=== PATIENT | female | born 1950 | race Caucasian/White ===

== ENCOUNTER → 2016-10-29 | Outpatient (CLI) | payer BC | END | disposition home or self-care (01) | LOC: LABPAT 12:34 | PROVIDERS: ATTEND Orthopaedic Surgery Sports Medicine | DX: Z01.810 Encounter for preprocedural cardiovascular examination (principal) | CPT/HCPCS: 93005 ==

== ENCOUNTER 2016-10-31 12:34 | Day surgery (SDC) | payer BC ==
[2016-10-29 16:36] VITALS: BMI 17.4
[~2016-10-31 12:34] MED LIST: DEXAMETHASONE SOD PHOSPHATE 10 MG/ML 1 ML VIAL IV ONE; HYDROmorphone 1 MG/ML 1 ML SYRINGE IVP PRN; MIDAZOLAM 2 MG/2 ML VIAL IV PRN; ONDANSETRON 4 MG/2 ML VIAL IVP ONE
[2016-10-31] MEDS: LACTATED RINGERS 1,000 ML IV ONE ×2 (12:43→14:24)
[2016-10-31] MEDS ORDERED: LIDOCAINE 1% 20 ML VIAL (10MG/ML) FOR IV START INTRADERMA ONE (12:43)
[2016-10-31] MEDS ORDERED: ALBUTEROL NEBULIZED 2.5 MG/3 ML INHALATION STA (13:25)
[2016-10-31 13:49] LABS: Basophils % (A) 0 %; CH 32.9; CHCM 34.6; Eosinophils # (A) 0.1 k/uL (0-0.7); Eosinophils % (A) 0 %; HCT 37.4 % (34.0-46.0); HDW 2.38; HGB 12.5 gm/dL (11.4-16.0); Luc # (Auto) 0.19; Luc % (Auto) 1; Lymphocytes # (A) 1.1 k/uL (1.0-4.8); Lymphocytes % (A) 8 %; MCH 31.9 pg (25.0-35.0); MCHC 33.4 g/dL (31.0-37.0); MCV 95.5 fL (80.0-100.0); Mean Platelet Volume 7.1; Monocytes # (A) 1.2 k/uL (0-1.0); Monocytes % (A) 9 %; Neutrophils # (A) 11.8 k/uL (1.3-7.7); Neutrophils % (A) 82 %; RBC 3.91 m/uL (3.80-5.40); RDW 12.4 % (11.5-15.5); WBC 14.5 k/uL (3.8-10.6)
[2016-10-31] MEDS ORDERED: SODIUM CHLORIDE 0.9% 1,000 ML BAG ONE (14:23)
[2016-10-31] MEDS ORDERED: LACTATED RINGERS 1,000 ML BAG IV ONE (14:23)
[2016-10-31] MEDS ORDERED: ceFAZolin 10 GM VIAL IVPB ONE (14:23)
[2016-10-31] MEDS ORDERED: LIDOCAINE 1% INJ 10MG/ML (20 ML MDV) ONE (14:23)
[2016-10-31] MEDS ORDERED: PHENYLEPHRINE-0.9% NACL SYG 1 MG/10 ML SYRINGE ONE (14:23)
[2016-10-31] MEDS ORDERED: SODIUM CHLORIDE 0.9% 100 ML BAG ONE (14:23)
[2016-10-31] MEDS ORDERED: ceFAZolin 1,000 MG VIAL ONE (14:23)
[2016-10-31] MEDS ORDERED: MIDAZOLAM 2 MG/2 ML VIAL ONE (14:23)
[2016-10-31] MEDS ORDERED: SUCCINYLCHOLINE CHLORIDE 100 MG/5 ML SYR IV ONE (14:23)
[2016-10-31] MEDS ORDERED: fentaNYL (PF) 50 MCG/ML 2 ML AMP ONE (14:23)
[2016-10-31] MEDS ORDERED: PROPOFOL 10 MG/ML 20 ML VIAL IV ONE (14:23)
[2016-10-31] MEDS ORDERED: GLYCOPYRROLATE 0.2 MG/ML 2 ML VIAL ONE (14:23)
[2016-10-31] MEDS ORDERED: HYDROmorphone (PF) 1 MG/ML ONE (14:23)
[2016-10-31] MEDS ORDERED: NEOSTIGMINE 1 MG/ML 10 ML VIAL ONE (14:23)
[2016-10-31] MEDS ORDERED: VECURONIUM 10 MG VIAL IV ONE (14:23)
[2016-10-31] MEDS ORDERED: ONDANSETRON 4 MG/2 ML VIAL ONE (14:23)
[2016-10-31] MEDS: ceFAZolin 2 GM in SODIUM CHLORIDE 0.9% 100 ML IVPB ONE ×2 (14:45→16:54)
[2016-10-31] MEDS: ceFAZolin 1,000 MG in SODIUM CHLORIDE 0.9% 1,000 ML IRRIGATION ONE ×2 (15:14→19:52)
[2016-10-31] MEDS ORDERED: TEMAZEPAM 15 MG CAP PO PRN (16:43)
[2016-10-31] MEDS ORDERED: SENNOSIDES-DOCUSATE SODIUM 1 EACH TAB PO PRN (16:43)
[2016-10-31] MEDS ORDERED: METOCLOPRAMIDE 5 MG/ML 2 ML VIAL IVP PRN (16:43)
[2016-10-31] MEDS ORDERED: ONDANSETRON 4 MG/2 ML VIAL IVP PRN (16:43)
[2016-10-31] MEDS ORDERED: diphenhydrAMINE 25 MG CAP PO PRN (16:43)
[2016-10-31] MEDS ORDERED: HYDROmorphone 1 MG/ML 1 ML SYRINGE IVP PRN ×3 (16:43)
[2016-10-31] MEDS ORDERED: HYDROcodone/APAP 5-325MG 1 EACH TAB PO PRN ×2 (16:43)
[2016-10-31] MEDS ORDERED: hydrOXYzine PAMOATE 25 MG CAP PO PRN (16:43)
--- NOTE | 2016-10-31 17:23 | XR ---
EXAMINATION TYPE: XR shoulder limited RT, FL guidance operating room DATE OF EXAM: 10/31/2016 4:46 PM FLUOROSCOPY Fluoroscopy time of 1 minute 19 seconds was used during ORIF proximal right humerus. 3 image/s docum ent/s the procedure. Images show side plate and multiple screw fixation of the proximal humeral fracture which appears to be at the level of the surgical neck. There appears to be distraction at the glenohumeral joint.
[2016-10-31] MEDS: LACTATED RINGERS 1,000 ML IV SCH (18:24)
[2016-10-31] MEDS: DOXYCYCLINE 50 MG CAP PO SCH (21:03)
[2016-11-01] MEDS: ceFAZolin 2 GM in SODIUM CHLORIDE 0.9% 100 ML IVPB SCH ×2 (00:16→08:25)
[2016-11-01] MEDS: LACTATED RINGERS 1,000 ML IV SCH (05:14)
[2016-11-01 06:40] LABS: Basophils % (A) 0 %; CH 32.6; CHCM 33.2; Eosinophils # (A) 0.1 k/uL (0-0.7); Eosinophils % (A) 1 %; HCT 32.8 % (34.0-46.0); HDW 2.41; HGB 10.6 gm/dL (11.4-16.0); Luc # (Auto) 0.17; Luc % (Auto) 2; Lymphocytes # (A) 1.8 k/uL (1.0-4.8); Lymphocytes % (A) 18 %; MCH 31.8 pg (25.0-35.0); MCHC 32.2 g/dL (31.0-37.0); MCV 98.6 fL (80.0-100.0); Mean Platelet Volume 7.3; Monocytes # (A) 1.1 k/uL (0-1.0); Monocytes % (A) 11 %; Neutrophils % (A) 69 %; RBC 3.32 m/uL (3.80-5.40); RDW 12.4 % (11.5-15.5); WBC 10.1 k/uL (3.8-10.6); WBC (Perox) 10.68
[2016-11-01] MEDS: DOXYCYCLINE 50 MG CAP PO SCH (08:24)
[2016-11-01 08:37] VITALS: TEMP 98.2
[2016-11-01] MEDS ORDERED: ACETAMINOPHEN TAB 325 MG TAB PO PRN (08:50)
--- NOTE | 2016-11-01 09:47 | OP ---
DATE OF SERVICE: 10/31/2016 SURGEON: ANA LUISA ESPINO MD ETCHER MACHINE: LORY Das PREOPERATIVE DIAGNOSIS: Right displaced 2-part proximal humerus fracture. POSTOPERATIVE DIAGNOSIS: Right displaced 2-part proximal humerus fracture. OPERATION: Open reduction internal fixation right proximal humerus fracture. ANESTHESIA: General endotracheal. ESTIMATED BLOOD LOSS: 100 mL. SPECIMENS REMOVED: COMPLICATIONS: None apparent. DRAINS: None. DISPOSITION: Postanesthesia care unit. OPERATIVE FINDINGS: INDICATIONS: Re is a very pleasant 66-year-old female who fell approximately 5 to 6 days ago and injured her right shoulder. She eventually presented to an urgent care center where x-rays of the shoulder were done and then she ultimately presented to [facility] Emergency Room this past Friday. Workup including x-rays revealed a displaced proximal humerus fracture. She was placed into a sling and given followup in my office. I saw her earlier this week. There was significant varus deformity of the proximal humerus and displacement of the fracture. Recommendation was given Re's activity level and the fact that she is still working recommendation was for open reduction internal fixation of her right proximal humerus fracture. The risks were discussed with her in detail. These risks include, but are not limited to risk of infection, nerve damage, bleeding, pain, and a small risk of deep vein thrombosis, which could lead to fatal pulmonary embolism. Further risks include possibility for nonunion of the fracture and for avascular necrosis of the humeral head. Postoperative stiffness is also of a significant concern. All of Re's questions were answered to her satisfaction and appropriate informed consent was obtained. DESCRIPTION OF THE PROCEDURE: The patient was identified in the preoperative holding area. Surgical site was marked by both the patient and myself. She was given 2 grams of Ancef IV for prophylactic purposes. She was then transferred to the operative suite, where she was placed supine on the operating room table. General anesthetic was then administered and dosed to the anesthesia department without apparent complication. She was then placed into the beach chair position, well padded in preparation for surgery. Great care was taken to ensure that her neck was in neutral alignment, well-padded and maintained that way throughout the operative procedure. Her legs were appropriately padded as well. Her right upper extremity was then prepped and draped in usual sterile fashion. Standard surgical pause was then undertaken to ensure that we were operating on the correct site and that appropriate preoperative antibiotics had been given. All staff in the room were in agreement and we proceeded. The outlines of the acromion, distal clavicle, acromioclavicular joint and coracoid were marked with a surgical pen. A planned 10 to 12 cm incision extending from the level of the clavicle distally over the deltopectoral interval approximately 1 cm lateral to the coracoid was marked with a surgical pen. The incision was then made with a 10 blade scalpel. Dissection was carried down sharply to the deltoid fascia. All hemostasis was achieved with electrocautery. Minimal skin flaps were then elevated. The deltopectoral interval was identified at the level of clavicle. I then freed the cephalic vein laterally and then left the cephalic vein in its bed medially. The cephalic vein was protected throughout the rest of the case. I then utilized my finger to dissect the subdeltoid space. A significant hemorrhagic bursa, a significant fracture hematoma was also encountered at this point in time. The hemorrhagic bursa was sharply debrided. I then placed three #1 Vicryl traction sutures in the subscapularis supraspinatus and posteriorly in the infraspinatus. These traction sutures gave me excellent control of the humeral head. Utilizing traction sutures, I reduced the humeral head into appropriate amount of valgus back to the humeral shaft. The humeral shaft was impacted into the humeral head. Fluoroscopy was then brought in to evaluate the reduction. The humeral head reduction was acceptable. The humeral head valgus had been restored. The shaft was reduced to the humeral head. I then proceeded with placement of the plate. I utilized a Synthes right-sided proximal humeral locking plate. This was then placed onto the lateral aspect of the proximal humerus. It was then provisionally pinned into place. Fluoroscopy was utilized to ensure that the height was appropriate and that it was not placed too superior. I then placed a 3.5 mm bicortical nonlocking screw through the oblong hole in the humeral shaft. This secured the plate very securely to the humeral shaft. I then proceeded to place multiple cannulated locking screws into the humeral head. These were placed through the locking holes of the precontoured plate. Each screw was placed with fluoroscopic guidance to ensure that it was appropriate length. Multiple screws were placed, cannulated lock sutures were placed in the humeral head. This gave excellent fixation of the plate to the humeral head. I then placed a final 3.5 mm bicortical nonlocking screw through the distal hole in the plate. Again this had a fairly good bite in bone. Final fluoroscopic images were then taken. The fracture had been reduced nicely. All the screws were of appropriate length and did not penetrate into the glenohumeral joint. All screws were in bone on both AP and lateral views. I then placed three #1 Vicryl sutures through the supraspinatus and infraspinatus. These sutures were then tied to the plate. This was done for a parachute-type technique to reinforce the fixation. At this point in time, no further work seemed necessary. The shoulder was thoroughly irrigated with sterile saline solution with antibiotic added. I then placed by finger into the ( ) joint space and felt for the axillary nerve. The axillary nerve was intact. I then proceeded with closure. The deltopectoral interval was closed with interrupted 0 Vicryl suture. Subcutaneous tissue was closed with interrupted 2-0 Vicryl interrupted suture and the skin was closed with a running 3-0 Quill suture. Dermabond was then applied to the incision. Sterile dressing was applied and the patient's right upper extremity was placed into a standard sling. At this point in time, no further work was deemed necessary. She was transferred to the recovery room in stable condition.
--- NOTE | 2016-11-01 10:20 | P.DS ---
Providers Expected date of discharge: 11/01/16 Attending physician: Jose Daniel Sifuentes Consults: 10/31/16 16:43 Consult Physician Routine Consulting Provider: Nerissa Merchant Consult Reason/Comments: post op medical management Do you want consulting provider notified?: Yes Primary care physician: Stated None - Discharge Diagnosis(es) (1) Fracture of proximal humerus Current Visit: No Status: Acute Hospital Course: This is a pleasant 66-year-old female who fell approximately a week ago injuring her right shoulder. She was seen in our office with displaced proximal humerus fracture. She was placed in a sling. After discussion and consideration the patient elected to proceed with open reduction internal fixation of the right proximal humerus. She was admitted to [facility] on 10/31/2016 and underwent the procedure with Dr. Jose Daniel Sifuentes. The procedure was performed without competitions or sequelae. The patient did well postoperatively. She seen and evaluated at bedside this morning. She states that her pain is well-controlled. She has no complaints at this time. She denies numbness or tingling. She is alert and orientated 3. Her dressing is clean dry and intact. Incision appears fine with no erythema or active drainage. Neurovascular status is intact. Radial pulse 2+ out of 4+. The patient is orthopedically stable for discharge to home today please refer to discharge instructions for further recommendations. Pertinent Studies: Laboratory Tests 11/01/16 06:27 WBC 10.1 RBC 3.32 L Hgb 10.6 L Hct 32.8 L Monocytes # 1.1 H Patient Condition at Discharge: Good Plan - Discharge Summary New Discharge Prescriptions: Doxycycline Hyclate 100 mg PO BID #10 tab HYDROcodone/APAP 7.5-325MG [[place] 7.5-325] 1 - 2 tab PO Q6HR PRN #60 tab PRN Reason: Pain Discharge Medication List Aspirin 81 mg PO HS 10/29/16 [History] Enalapril Maleate [Enalapril Maleate] 10 mg PO BID 10/29/16 [History] Fluticasone Propionate [Flovent Hfa 110mcg] 2 puff INHALATION DAILY 10/29/16 [ History] Naproxen Sodium [Aleve] 220 mg PO BID PRN 10/29/16 [History] Vitamin D3 (Unknown Dose) 1 tab PO DAILY 10/29/16 [History] Vitamin E (Unknown Dose) 1 tab PO DAILY 10/29/16 [History] Doxycycline Hyclate 100 mg PO BID #10 tab 10/31/16 [Rx] HYDROcodone/APAP 7.5-325MG [[place] 7.5-325] 1 - 2 tab PO Q6HR PRN #60 tab [Rx] Follow up Appointment(s)/Referral(s): Jose Daniel Sifuentes MD [STAFF PHYSICIAN] - 11/13/16 1:50 pm (You have an appointment with Dr Sifuentes on Sunday, November 13, 2016 at 1:50 pm) Activity/Diet/Wound Care/Special Instructions: Maintain sling Take meds as directed Keep wound clean and dry Non weight bearing right upper extremity Follow up with Dr. Sifuentes in office, [phone]. October at 1: 50 pm. May take Tylenol in place of [place] Call Dr Sifuentes if you develop a fever, increasing pain, increasing swelling, tingling, loss of sensation, or if you have any other questions or concerns. Discharge Disposition: HOME SELF-CARE
[2016-11-01] MEDS ORDERED: IPRATROPIUM-ALBUTEROL 3 ML NEB INHALATION SCH (12:00)
[2016-11-01 12:49] VITALS: BP 172/88
[2016-11-01 13:33] VITALS: PULSE 90; RESP 18
--- NOTE | 2016-11-01 15:32 | P.CONS ---
History of Present Illness - Reason for Consult Consult date: 11/01/16 Low pulse ox - History of Present Illness This is a 66-year-old female. She is a patient of Dr. Uriostegui with a past medical history of COPD with rescue inhaler only, hypertension, silent myocardial infarction in the past found on EKG, tobacco use and dependence. Patient had a fall 1 week ago injuring her right shoulder. She followed up with Dr. Sifuentes and was found to have a displaced proximal humerus fracture that was placed in a sling. Patient was brought into [facility] for open reduction internal fixation of the right proximal humerus which was done on October 31. Patient was prepared for discharge home per pulse ox was found to be 81% and she was having some wheezing. Patient was ordered for nebulizer treatment, incentive spirometry and after these treatments, patient's pulse ox was up to 97% with ambulation. Patient was then discharged home in stable condition. Patient states that her pain is well controlled. She denies shortness of breath. She denies having any fever or chills night sweats. No weight loss. Review of Systems All systems: negative Constitutional: Denies chills, Denies fever Eyes: denies blurred vision, denies pain Ears, nose, mouth and throat: Denies headache, Denies sore throat Cardiovascular: Denies chest pain, Denies shortness of breath Respiratory: Denies cough Gastrointestinal: Denies abdominal pain, Denies diarrhea, Denies nausea, Denies vomiting Genitourinary: Denies dysuria, Denies hematuria Musculoskeletal: Denies myalgias Integumentary: Denies pruritus, Denies rash Neurological: Denies numbness, Denies weakness Psychiatric: Denies anxiety, Denies depression Endocrine: Denies fatigue, Denies weight change Past Medical History Past Medical History: COPD, Hypertension, Myocardial Infarction (RI) Additional Past Medical History / Comment(s): TOLD SILENT RI IN PAST. FX RT PROXIMAL HUMERUS CURRENTLY, IN SLING. Last Myocardial Infarction Date:: UNKNOWN History of Any Multi-Drug Resistant Organisms: None Reported Past Surgical History: Cholecystectomy, Hysterectomy Additional Past Surgical History / Comment(s): EXC OVARIAN CYST. Past Anesthesia/Blood Transfusion Reactions: No Reported Reaction Past Psychological History: No Psychological Hx Reported Smoking Status: Current every day smoker Past Alcohol Use History: Occasional Additional Past Alcohol Use History / Comment(s): SMOKES 1PPD, 40 YEARS. DRINKS ALCOHOL 7-10 PER WEEK. Past Drug Use History: None Reported - Past Family History Mother Family Medical History: Cancer Father Family Medical History: Cancer Medications and Allergies Home Medications Medication Instructions Recorded Confirmed Type Aspirin 81 mg PO HS 10/29/16 10/31/16 History Enalapril Maleate [Enalapril 10 mg PO BID 10/29/16 10/31/16 History Maleate] Fluticasone Propionate [Flovent 2 puff INHALATION DAILY 10/29/16 10/31/16 History Hfa 110mcg] Naproxen Sodium [Aleve] 220 mg PO BID PRN 10/29/16 10/31/16 History Vitamin D3 (Unknown Dose) 1 tab PO DAILY 10/29/16 10/31/16 History Vitamin E (Unknown Dose) 1 tab PO DAILY 10/29/16 10/31/16 History Allergies Allergy/AdvReac Type Severity Reaction Status Date / Time Iodinated Contrast Media - Allergy Intermediate Rash/Hives Verified 10/31/16 18: 52 Oral and Physical Exam Vitals: Vital Signs Temp Pulse Pulse Pulse Pulse Pulse Resp 11/01/16 12:58 80 11/01/16 12:48 76 11/01/16 12:06 11/01/16 11:30 11/01/16 11:25 90 11/01/16 08:00 20 11/01/16 07:55 98.2 F 88 20 11/01/16 03:42 70 16 11/01/16 00:20 97.6 F 86 20 10/31/16 22:00 97.9 F 81 16 10/31/16 20:00 100 104 H 18 10/31/16 19:30 81 16 10/31/16 18:55 80 16 10/31/16 18:25 97.5 F L 95 20 10/31/16 17:54 101 H 16 10/31/16 17:39 101 H 16 10/31/16 17:24 101 H 16 10/31/16 17:09 104 H 16 10/31/16 16:54 98.4 F 100 18 10/31/16 13:47 66 10/31/16 13:37 62 BP Pulse Ox 11/01/16 12:58 11/01/16 12:48 11/01/16 12:06 172/88 93 L 11/01/16 11:30 87 L 11/01/16 11:25 81 L 11/01/16 08:00 11/01/16 07:55 166/90 91 L 11/01/16 03:42 94 L 11/01/16 00:20 164/89 94 L 10/31/16 22:00 163/89 94 L 10/31/16 20:00 142/83 98 10/31/16 19:30 154/76 96 10/31/16 18:55 155/84 95 10/31/16 18:25 149/75 92 L 10/31/16 17:54 159/76 99 10/31/16 17:39 146/75 95 10/31/16 17:24 168/81 91 L 10/31/16 17:09 164/81 100 10/31/16 16:54 169/81 99 10/31/16 13:47 10/31/16 13:37 Intake and Output 10/31/16 11/01/16 11/01/16 22:59 06:59 14:59 Intake Total 1182 1600 Output Total 175 600 600 Balance 1007 1000 -600 Intake: IV 102 Oral 1080 1600 Output: Urine 75 600 600 Estimated Blood Loss 100 Other: Voiding Method Toilet Toilet # Voids 1 1 1 Weight 47.627 kg 47.627 kg Patient Weight 11/02/16 06:59 Weight 47.627 kg Gen: This is a very thin 66-year-old female. She is sitting up on the edge of the bed and appears to be in no respiratory distress. HEENT: Head is atraumatic, normocephalic. Pupils equal, round. Sclerae is anicteric. NECK: Supple. No JVD. No lymphadenopathy. No thyromegaly. LUNGS: Clear to auscultation. Rate wheezes with decreased air exchange. No intercostal retractions. HEART: Regular rate and rhythm. No murmur. ABDOMEN: Soft. Bowel sounds are present. No masses. No tenderness. EXTREMITIES: No pedal edema. No calf tenderness. Sling in place to the right arm. NEUROLOGICAL: Patient is awake, alert and oriented x3. Cranial nerves 2 through 12 are grossly intact. Results CBC & Chem 7: 11/01/16 06:27 Labs: Abnormal Lab Results - Last 24 Hours (Table) 10/31/16 11/01/16 Range/Units 13:05 06:27 WBC 14.5 H (3.8-10.6) k/uL RBC 3.32 L (3.80-5.40) m/uL Hgb 10.6 L (11.4-16.0) gm/dL Hct 32.8 L (34.0-46.0) % Neutrophils # 11.8 H (1.3-7.7) k/uL Monocytes # 1.2 H 1.1 H (0-1.0) k/uL Assessment and Plan Plan: 1. Right humerus fracture status post ORIF. Continue sling. Continue pain management. 2. Low pulse ox. Patient was ordered for one nebulizer treatment, incentive spirometry. IS was at 1000 mL's. Pulse ox was increased to 97% with ambulation and patient was cleared for discharge from medicine. 3. COPD, stable. Continue rescue inhaler and Flovent at home. 4. Hypertension. Continue enalapril. Impression and plan of care have been directed as dictated by the signing physician. Yoon Toscano nurse practitioner acting as scribe for signing physician. Time with Patient: Greater than 30
== END 2016-11-01 13:43 | disposition home or self-care (01) ==
LOC: OR 12:34 → 6PED 16:42 → OR 11-01 13:43
PROVIDERS: ATTEND Orthopaedic Surgery Sports Medicine
DX: S42.201A Unspecified fracture of upper end of right humerus, initial encounter for closed fracture (principal); W19.XXXA Unspecified fall, initial encounter; R09.02 Hypoxemia; J44.9 Chronic obstructive pulmonary disease, unspecified; I10 Essential (primary) hypertension; I51.9 Heart disease, unspecified; Z79.899 Other long term (current) drug therapy; I25.2 Old myocardial infarction; F17.200 Nicotine dependence, unspecified, uncomplicated; Z91.041 Radiographic dye allergy status
CPT/HCPCS: 23615; 94640 ×2; 85025 ×2; 73020; C1713; J2250; J1100; J2710; J0690 ×3; J2405; J2001; J3010; J1170 ×2; J2370; J0330; J2704

== ENCOUNTER 2016-11-18 10:48 | Inpatient (IN) | payer BC ==
[2016-11-18] MEDS ORDERED: IPRATROPIUM-ALBUTEROL 3 ML NEB INHALATION STA (11:22)
[2016-11-18] MEDS ORDERED: methylPREDNISolone SOD SUCCI 125 MG/2 ML VIAL IV STA (11:22)
[2016-11-18 11:51] LABS: Basophils # (A) 0.1 k/uL (0-0.2); Basophils % (A) 1 %; CH 32.1; CHCM 34.1; Eosinophils # (A) 0.1 k/uL (0-0.7); Eosinophils % (A) 1 %; HCT 38.7 % (34.0-46.0); HDW 2.61; HGB 12.7 gm/dL (11.4-16.0); Luc # (Auto) 0.09; Luc % (Auto) 1; Lymphocytes # (A) 1.2 k/uL (1.0-4.8); Lymphocytes % (A) 12 %; MCHC 32.9 g/dL (31.0-37.0); MCV 94.2 fL (80.0-100.0); Mean Platelet Volume 7.5; Monocytes # (A) 0.9 k/uL (0-1.0); Monocytes % (A) 9 %; Neutrophils # (A) 7.6 k/uL (1.3-7.7); Neutrophils % (A) 77 %; RDW 13.4 % (11.5-15.5); WBC 9.9 k/uL (3.8-10.6); WBC (Perox) 10.87
[2016-11-18 12:00] LABS: Anion Gap 10 mmol/L; Blood Urea Nitrogen 9 mg/dL (7-17); Carbon Dioxide 26 mmol/L (22-30); Chloride 95 mmol/L (98-107); Glucose 107 mg/dL (74-99); Magnesium 1.6 mg/dL (1.6-2.3); Non-African American GFR(MDRD) >60 (>60 ml/min/1.73 sqM); Potassium 4.4 mmol/L (3.5-5.1); Sodium 131 mmol/L (137-145)
[2016-11-18 12:08] LABS: INR 1.1 (<1.1); Partial Thromboplastin Time 24.6 sec (22.0-30.0); Prothrombin Time 10.8 sec (9.0-12.0)
--- NOTE | 2016-11-18 12:35 | ED ---
General Adult HPI - General Chief complaint: Shortness of Breath Stated complaint: URBAN Time Seen by Provider: 11/18/16 11:07 Source: patient, EMS Mode of arrival: ambulatory Limitations: no limitations - History of Present Illness Initial comments: Patient is a 66-year-old female with history of COPD, hypertension, and persistent tobacco abuse presenting with shortness of breath. Patient states since last she's been short of breath. Patient states she fell on her left side been having left lower rib pain. She has been using heat as well as Tylenol with relief. Patient denies productive sputum but that she is unable to get a good cough. Patient states she fell 3 weeks ago and had a humerus fracture which was repaired. Patient cannot say why she keeps falling but just gets weak. Patient denies history of DVT/PE. Patient denies history of oxygen but was found to be hypoxic at 88% and placed on 2 L nasal cannula. Patient denies fever, chills, chest pain, nausea, vomiting, diarrhea. - Related Data Home Medications Medication Instructions Recorded Confirmed Aspirin 81 mg PO HS 10/29/16 11/18/16 Enalapril Maleate [Enalapril 10 mg PO BID 10/29/16 11/18/16 Maleate] Fluticasone Propionate [Flovent 2 puff INHALATION RT-DAILY 10/29/16 11/18/16 Hfa 110mcg] Acetaminophen Tab [Tylenol Tab] 650 mg PO Q4H PRN 11/18/16 11/18/16 Cholecalciferol [Vitamin D3] 1,000 unit PO DAILY 11/18/16 11/18/16 Cyanocobalamin [Vitamin B-12] 500 mcg PO DAILY 11/18/16 11/18/16 Allergies Allergy/AdvReac Type Severity Reaction Status Date / Time Iodinated Contrast Media - Allergy Intermediate Rash/Hives Verified 11/18/16 11: 06 Oral and Review of Systems ROS Statement: Those systems with pertinent positive or pertinent negative responses have been documented in the HPI. Constitutional: No fever and no chills. HENT: No congestion, no rhinorrhea and no sore throat. Eyes: No discharge and no redness. Respiratory: No cough and +shortness of breath. Cardiovascular: No chest pain and no palpitations. Gastrointestinal: No nausea, no vomiting, no abdominal pain and no diarrhea. Genitourinary: No dysuria and no hematuria. Musculoskeletal: No back pain and no arthralgias. Skin: No pallor and no rash. Neurological: No dizziness and No headaches. ROS Other: All systems not noted in ROS Statement are negative. Past Medical History Past Medical History: COPD, Hypertension, Myocardial Infarction ([place]) Additional Past Medical History / Comment(s): TOLD SILENT [place] IN PAST. FX RT PROXIMAL HUMERUS CURRENTLY, IN [place]. Last Myocardial Infarction Date:: UNKNOWN History of Any Multi-Drug Resistant Organisms: None Reported Past Surgical History: Cholecystectomy, Hysterectomy Additional Past Surgical History / Comment(s): EXC OVARIAN CYST. Past Anesthesia/Blood Transfusion Reactions: No Reported Reaction Past Psychological History: No Psychological Hx Reported Smoking Status: Current every day smoker Past Alcohol Use History: Occasional Additional Past Alcohol Use History / Comment(s): SMOKES 1PPD, 40 YEARS. DRINKS ALCOHOL 7-10 PER WEEK. Past Drug Use History: None Reported - Past Family History Mother Family Medical History: Cancer Father Family Medical History: Cancer General Exam - General Exam Comments Initial Comments: Constitutional: Patient appears well-developed and well-nourished. Moderate respiratory distress Head: Normocephalic and atraumatic. Eyes: Conjunctivae and EOM are normal. Right eye exhibits no discharge. Left eye exhibits no discharge. No scleral icterus. Neck: Normal range of motion. Neck supple. Cardiovascular: Tachycardic. No murmur heard. Pulmonary/Chest: Tachypnea with diffuse bilateral coarse wheezing Abdominal: Soft. No distension. There is no tenderness. There is no rebound and no guarding. Musculoskeletal: Bruising to right humerus. Left lateral rib cage tenderness without bruising. Neurological: Patient alert and oriented to person, place, and time. Skin: Skin is warm and dry. Not diaphoretic. Nursing notes and vitals reviewed. Limitations: no limitations Course Vital Signs 11/18/16 11/18/16 11/18/16 10:51 11:13 12:03 Temperature 98 F Pulse Rate 120 H 111 H Respiratory 18 18 18 Rate Blood Pressure 207/98 201/99 O2 Sat by Pulse 92 L 95 Oximetry 11/18/16 11/18/16 11/18/16 12:07 12:15 13:16 Temperature Pulse Rate 106 H 110 H 91 Respiratory 18 Rate Blood Pressure 204/96 O2 Sat by Pulse 100 Oximetry 11/18/16 11/18/16 11/18/16 14:24 14:47 15:21 Temperature Pulse Rate 104 H 99 98 Respiratory 18 17 17 Rate Blood Pressure 211/100 205/103 196/100 O2 Sat by Pulse 90 L 92 L 94 L Oximetry 11/18/16 11/18/16 11/18/16 15:22 15:38 16:01 Temperature Pulse Rate 94 97 93 Respiratory 17 Rate Blood Pressure 197/92 O2 Sat by Pulse 97 Oximetry EKG Findings - EKG Comments: EKG Findings:: EKG done at 12:04 shows a ventricular rate of 108 bpm. Sinus tachycardia. SD interval 158 ms. QRS duration 82 ms. QTC 436 seconds. T- wave inversions V5 through V6. No ST elevation. Medical Decision Making - Medical Decision Making Patient's a 66-year-old female presenting with shortness of breath. Patient states she fell 4 days ago and has been having left lower rib pain. Patient does have COPD for which she is not on home oxygen. Patient has been using Tylenol and heating pad for the pain. Chest x-ray confirms a 10% left apical pneumothorax with left rib fractures of ribs 8 and 9. EKG unremarkable. CBC, BMP, troponin, UA unremarkable. Patient was resting comfortably in bed. Course of stay stable but will need close observation for possible worsening PTx. Discussed physical exam and diagnostic tests with patient. Questions answered and patient is agreeable to staying in the hospital. 1:26pm Discussed H&P and pertinent diagnostic tests Dr. Contreras, Trauma Surgery, who defers to cardiothoracic surgery as patient is NOT a level II trauma activation and injury was 4 days ago. 1:42pm Discussed H&P and pertinent diagnostic tests with Dr. Syed, CTS, who agrees with holding off on chest tube. Recommends daily chest x-rays. Patient can be managed for COPD exacerbation without any NSAIDs or steroids. 2:00pm Discussed H&P and pertinent diagnostic tests with admitting physician, Dr. Morgan , who agrees with plan and accepts admission of patient. Recommends consult and Dr. Handley and holding off on CTS consult. - Plan of care will be to treat patient for COPD exacerbation with breathing treatments and doxycycline. Patient will be treated for left rib fractures and pneumothorax with serial chest x-rays, pain control: Leading patch, Robaxin, opiates, and incentive spirometer. - Lab Data Result diagrams: 11/18/16 11:07 11/18/16 11:07 Lab Results 11/18/16 11/18/16 11/18/16 Range/Units 11:07 11:07 11:07 WBC 9.9 (3.8-10.6) k/uL RBC 4.10 (3.80-5.40) m/uL Hgb 12.7 (11.4-16.0) gm/dL Hct 38.7 (34.0-46.0) % MCV 94.2 (80.0-100.0) fL MCH 31.0 (25.0-35.0) pg MCHC 32.9 (31.0-37.0) g/dL RDW 13.4 (11.5-15.5) % Plt Count 428 (150-450) k/uL Neutrophils % 77 % Lymphocytes % 12 % Monocytes % 9 % Eosinophils % 1 % Basophils % 1 % Neutrophils # 7.6 (1.3-7.7) k/uL Lymphocytes # 1.2 (1.0-4.8) k/uL Monocytes # 0.9 (0-1.0) k/uL Eosinophils # 0.1 (0-0.7) k/uL Basophils # 0.1 (0-0.2) k/uL PT 10.8 (9.0-12.0) sec INR 1.1 (<1.1) APTT 24.6 (22.0-30.0) sec Sodium 131 L (137-145) mmol/L Potassium 4.4 (3.5-5.1) mmol/L Chloride 95 L (98-107) mmol/L Carbon Dioxide 26 (22-30) mmol/L Anion Gap 10 mmol/L BUN 9 (7-17) mg/dL Creatinine 0.48 L (0.52-1.04) mg/dL Est GFR (MDRD) Af Amer >60 (>60 ml/min/1.73 sqM) Est GFR (MDRD) Non-Af >60 (>60 ml/min/1.73 sqM) Glucose 107 H (74-99) mg/dL Plasma Lactic Acid Donn (0.7-2.0) mmol/L Calcium 9.0 (8.4-10.2) mg/dL Magnesium 1.6 (1.6-2.3) mg/dL Troponin I (0.000-0.034) ng/mL Urine Color Urine Appearance (Clear) Urine pH (5.0-8.0) Ur Specific [place] (1.001-1.035) Urine Protein (Negative) Urine Glucose (UA) (Negative) Urine Ketones (Negative) Urine Blood (Negative) Urine Nitrate (Negative) Urine Bilirubin (Negative) Urine Urobilinogen (<2.0) mg/dL Ur Leukocyte Esterase (Negative) 11/18/16 11/18/16 11/18/16 Range/Units 11:07 11:55 12:15 WBC (3.8-10.6) k/uL RBC (3.80-5.40) m/uL Hgb (11.4-16.0) gm/dL Hct (34.0-46.0) % MCV (80.0-100.0) fL MCH (25.0-35.0) pg MCHC (31.0-37.0) g/dL RDW (11.5-15.5) % Plt Count (150-450) k/uL Neutrophils % % Lymphocytes % % Monocytes % % Eosinophils % % Basophils % % Neutrophils # (1.3-7.7) k/uL Lymphocytes # (1.0-4.8) k/uL Monocytes # (0-1.0) k/uL Eosinophils # (0-0.7) k/uL Basophils # (0-0.2) k/uL PT (9.0-12.0) sec INR (<1.1) APTT (22.0-30.0) sec Sodium (137-145) mmol/L Potassium (3.5-5.1) mmol/L Chloride (98-107) mmol/L Carbon Dioxide (22-30) mmol/L Anion Gap mmol/L BUN (7-17) mg/dL Creatinine (0.52-1.04) mg/dL Est GFR (MDRD) Af Amer (>60 ml/min/1.73 sqM) Est GFR (MDRD) Non-Af (>60 ml/min/1.73 sqM) Glucose (74-99) mg/dL Plasma Lactic Acid Donn 1.4 (0.7-2.0) mmol/L Calcium (8.4-10.2) mg/dL Magnesium (1.6-2.3) mg/dL Troponin I <0.012 (0.000-0.034) ng/mL Urine Color Light Yellow Urine Appearance Clear (Clear) Urine pH 5.5 (5.0-8.0) Ur Specific [place] 1.004 (1.001-1.035) Urine Protein Negative (Negative) Urine Glucose (UA) Negative (Negative) Urine Ketones Negative (Negative) Urine Blood Negative (Negative) Urine Nitrate Negative (Negative) Urine Bilirubin Negative (Negative) Urine Urobilinogen <2.0 (<2.0) mg/dL Ur Leukocyte Esterase Negative (Negative) Disposition Clinical Impression: Hypertension, Traumatic pneumothorax, Rib fractures, Hypoxia Disposition: ADMITTED IP TO THIS [facility] Condition: Good Decision to Admit Reason: Admit from EC
[2016-11-18] MEDS: LABETALOL SYRINGE 5 MG/ML IVP STA ×2 (12:40→15:24)
--- NOTE | 2016-11-18 12:48 | XR ---
EXAMINATION TYPE: XR ribs LT w pa chest xray DATE OF EXAM: 11/18/2016 12:39 PM COMPARISON: NONE HISTORY: Fall hitting ribs TECHNIQUE: Frontal chest and 2 views left RIBS FINDINGS: There are posterior lateral left rib fractures of the eighth and ninth ribs. There is a sma ll left apical pneumothorax of less than 10%. Atelectasis is at the left base and left costophrenic a ngle. Some atelectasis may be present at the right lung base as well. IMPRESSION: 1. Left apical pneumothorax estimated at approximately 10%. 2. Two left-sided rib fractures the region of the 8th and 9th posterior lateral left ribs. 3. Report called to Dr. Francisco by Dr. Hall by telephone 124 hours 11/18/2016
[2016-11-18 13:01] LABS: Appearance,Urine Clear (Clear); Bilirubin,Urine Negative (Negative); Glucose,Urine (UA) Negative (Negative); Ketones,Urine Negative (Negative); Leukocyte Esterase,Urine Negative (Negative); Nitrite,Urine Negative (Negative); PH, Urine 5.5 (5.0-8.0); Protein,Urine Negative (Negative); Specific Gravity,Urine 1.004 (1.001-1.035); UA Billing (MACRO vs. MICRO) CHEM; Urobilinogen,Urine <2.0 mg/dL (<2.0)
[2016-11-18] MEDS ORDERED: ACETAMINOPHEN TAB 325 MG TAB PO PRN (13:57)
[2016-11-18] MEDS ORDERED: HYDROcodone/APAP 5-325MG 1 EACH TAB PO PRN (13:57)
[2016-11-18] MEDS ORDERED: NALOXONE 0.4 MG/ML 1 ML VIAL IV PRN (13:57)
[2016-11-18] MEDS ORDERED: MORPHINE SULFATE 4 MG/ML SYRINGE IV PRN (13:57)
[2016-11-18] MEDS ORDERED: MORPHINE SULFATE 4 MG/ML SYRINGE IVP STA (14:28)
[2016-11-18] MEDS ORDERED: LIDOCAINE 5% PATCH TOPICAL SCH (14:30)
[2016-11-18] MEDS: IPRATROPIUM-ALBUTEROL 3 ML NEB INHALATION SCH ×2 (15:22→20:59)
[2016-11-18] MEDS: SODIUM CHLORIDE 0.9% 1,000 ML IV SCH (17:22)
[2016-11-18] MEDS: METHOCARBAMOL 750 MG TAB PO SCH (17:23)
[2016-11-18] MEDS: LISINOPRIL 20 MG TAB PO SCH (22:04)
[2016-11-18] MEDS: DOXYCYCLINE 100 MG in SODIUM CHLORIDE 0.9% 100 ML IVPB SCH (22:05)
--- NOTE | 2016-11-18 23:50 | P.HPIM ---
History of Present Illness H&P Date: 11/18/16 Chief Complaint: Acute dyspnea and shortness of breath, left sided pneumothorax , bibasilar i 66-year-old female [address] alexander patient with past medical history of hypertension COPD and previous history of [place] who has been falling multiple times in the last few few weeks had an episode 3 weeks ago with the fracture humerus require surgery and repair with Dr. Sifuentes. Patient had fell on past week on the left side in the left have severe pain and discomfort ended up having significant dyspnea and shortness of breath for the last few days become much worse today ended up coming to the emergency department at [facility] where was seen and evaluated x-ray of the rib shows fracture in the rib 8 and 9 with left apical pneumothorax measuring about 10%. Cardiothoracic surgeon were consulted and decided based on the current pneumothorax no need for any surgical repair hour chest tube at that time to continue conservative management and continue consultation as an inpatient. Patient also has an early infiltrate in the base was started on doxycycline and continue updraft treatment and O2 and admitted to the hospital with the above problem. Review of Systems Constitutional: Reports anorexia, Reports chronic pain, Reports fatigue, Reports lethargy, Reports malaise, Reports weakness, Denies as per HPI, Denies chills, Denies chronic headaches, Denies daytime sleepiness, Denies fever, Denies night sweats, Denies poor appetite, Denies sweats, Denies weight gain, Denies weight loss Eyes: bilateral as per HPI Ears: bilateral: decreased hearing Ears, nose, mouth and throat: Reports ant. neck pain, Reports nasal congestion, Reports neck fullness/pressure, Reports neck lump, Reports sinus pain, Reports sinus pressure, Denies as per HPI, Denies bleeding gums, Denies dental pain, Denies dysphagia, Denies epistaxis, Denies headache, Denies hoarseness, Denies mouth pain, Denies nasal discharge, Denies nose pain, Denies odynophagia, Denies post-nasal drip, Denies swelling in mouth, Denies swelling in throat, Denies sore throat, Denies vertigo, Denies voice changes Cardiovascular: Reports chest pain, Reports decreased exercise tolerance, Reports dyspnea on exertion, Reports edema, Reports high blood pressure, Reports irregular heart beat, Reports leg edema, Reports lightheadedness, Reports orthopnea, Reports palpitations, Reports paroxysmal nocturnal dyspnea, Reports rapid heart beat, Reports shortness of breath, Denies as per HPI, Denies claudication, Denies phlebitis, Denies syncope Respiratory: Reports congestion, Reports cough with sputum, Reports pain on inspiration, Reports wheezing, Denies as per HPI, Denies cough, Denies dyspnea, Denies excessive sputum, Denies hemoptysis, Denies home oxygen, Denies pain, Denies pleurisy, Denies respiratory infections, Denies sleep apnea, Denies snoring Gastrointestinal: Reports abdominal pain, Reports dyspepsia, Reports indigestion , Reports nausea, Denies as per HPI, Denies belching, Denies bloating, Denies BRBPR, Denies change in bowel habits, Denies coffee ground emesis, Denies constipation, Denies diarrhea, Denies early satiety, Denies excessive gas, Denies heartburn, Denies hematemesis, Denies hematochezia, Denies jaundice, Denies lactose intolerance, Denies loss of appetite, Denies melena, Denies vomiting Genitourinary: Denies as per HPI, Denies abnormal vaginal bleeding, Denies decreased libido, Denies difficulty conceiving, Denies difficulty voiding, Denies dysmenorrhea, Denies dyspareunia, Denies dysuria, Denies flank pain, Denies genital sores, Denies hematuria, Denies hot flashes, Denies incomplete emptying, Denies kidney stones, Denies menorrhagia, Denies mixed incontinence, Denies nocturia, Denies pelvic pain, Denies post void dribbling, Denies , Denies prolapse symptoms, Denies stress incontinence, Denies urge incontinence , Denies urgency, Denies urinary frequency, Denies vaginal discharge, Denies vaginal dryness, Denies vaginal itching, Denies vaginal odor Musculoskeletal: Reports arm numbness/tingling, Reports frequent falls, Reports gait dysfunction, Reports leg numbness/tingling, Reports limitation of motion, Reports low back pain, Reports muscle cramps, Reports muscle weakness, Reports myalgias, Reports neck pain, Reports neck stiffness, Denies as per HPI, Denies atrophy, Denies fractures, Denies hot joints, Denies loss of height, Denies morning stiffness, Denies prior amputations, Denies redness of joints, Denies shooting arm pain, Denies shooting leg pain Musculoskeletal: bilateral: ankle pain Integumentary: Reports dryness, Reports pruritus, Reports rash, Denies as per HPI, Denies acne, Denies boils, Denies brittle nails, Denies change in hair/ nails, Denies color changes, Denies darkening of skin, Denies depigmentation, Denies foot/leg ulcers, Denies growths, Denies hirsutism, Denies lesions, Denies onychomycosis, Denies sores, Denies striae, Denies unusual bruising, Denies wounds Neurological: Reports ataxia, Reports lack of coordination, Reports motor disturbance, Reports numbness, Reports paresthesias, Reports spasticity, Denies as per HPI, Denies aphasia, Denies balance difficulties, Denies burning pain, Denies change in mentation, Denies change in smell/taste, Denies change in speech, Denies confusion, Denies convulsions, Denies double vision, Denies gait dysfunction, Denies head injury, Denies headaches, Denies hearing difficulties, Denies loss of vision, Denies memory loss, Denies migraines, Denies paralysis, Denies seizures, Denies sensory deficit, Denies syncope, Denies tic, Denies tingling, Denies transient paralysis, Denies tremors, Denies vertigo, Denies weakness, Denies visual changes Psychiatric: Reports anhedonia, Reports anxiety, Reports anxiety attacks, Reports depression, Reports mood swings, Denies as per HPI, Denies change in appetite, Denies change in libido, Denies change in sleep habits, Denies confusion, Denies difficulty concentrating, Denies disorientation, Denies hallucinations, Denies hopelessness, Denies hypersomnia, Denies insomnia, Denies irritability, Denies memory loss, Denies paranoia, Denies sadness/ tearfulness, Denies sleep disturbances, Denies suicidal ideation Endocrine: Reports cold intolerance, Reports excessive sweating, Reports nocturia, Reports polyphagia, Reports polyuria, Denies as per HPI, Denies deepening of the voice, Denies excessive thirst, Denies fatigue, Denies flushing , Denies heat intolerance, Denies high blood sugars, Denies increase in ring/ shoe/hat size, Denies low blood sugars, Denies palpitations, Denies polydipsia, Denies proptosis, Denies recent glucocorticoid use, Denies thyroid mass, Denies weight change Hematologic/Lymphatic: Reports easy bleeding, Reports easy bruising, Denies as per HPI, Denies lymphadenopathy, Denies lymphedema, Denies thrombophilia Allergic/Immunologic: Denies as per HPI, Denies allergic rhinitis, Denies anaphylaxis, Denies angioedema, Denies gluten intolerance, Denies persistent infections, Denies seasonal allergies, Denies urticaria, Denies wheezing Past Medical History Past Medical History: COPD, Hypertension, Myocardial Infarction ([place]) Additional Past Medical History / Comment(s): TOLD SILENT [place] IN PAST. FX RT PROXIMAL HUMERUS CURRENTLY, IN [place]. Last Myocardial Infarction Date:: UNKNOWN History of Any Multi-Drug Resistant Organisms: None Reported Past Surgical History: Cholecystectomy, Hysterectomy Additional Past Surgical History / Comment(s): EXC OVARIAN CYST. Past Anesthesia/Blood Transfusion Reactions: No Reported Reaction Past Psychological History: No Psychological Hx Reported Smoking Status: Current every day smoker Past Alcohol Use History: Occasional Additional Past Alcohol Use History / Comment(s): SMOKES 1PPD, 40 YEARS. DRINKS ALCOHOL 7-10 PER WEEK. Past Drug Use History: None Reported - Past Family History Mother Family Medical History: Cancer Additional Family Medical History / Comment(s): colon ca-passed from Father Family Medical History: Cancer Additional Family Medical History / Comment(s): skin ca Medications and Allergies Home Medications Medication Instructions Recorded Confirmed Type Aspirin 81 mg PO HS 10/29/16 11/18/16 History Enalapril Maleate [Enalapril 10 mg PO BID 10/29/16 11/18/16 History Maleate] Fluticasone Propionate [Flovent 2 puff INHALATION RT-DAILY 10/29/16 11/18/16 History Hfa 110mcg] Acetaminophen Tab [Tylenol Tab] 650 mg PO Q4H PRN 11/18/16 11/18/16 History Cholecalciferol [Vitamin D3] 1,000 unit PO DAILY 11/18/16 11/18/16 History Cyanocobalamin [Vitamin B-12] 500 mcg PO DAILY 11/18/16 11/18/16 History Allergies Allergy/AdvReac Type Severity Reaction Status Date / Time Iodinated Contrast Media - Allergy Intermediate Rash/Hives Verified 11/18/16 11: 06 Oral and Physical Exam Vitals: Vital Signs Temp Pulse Pulse Resp BP BP Pulse Ox 11/18/16 21:13 97 11/18/16 21:01 105 H 11/18/16 16:59 96.7 F L 107 H 20 166/93 95 11/18/16 16:22 97.2 F L 96 17 176/84 97 11/18/16 16:01 93 17 197/92 97 11/18/16 15:38 97 11/18/16 15:22 94 11/18/16 15:21 98 17 196/100 94 L 11/18/16 14:47 99 17 205/103 92 L 11/18/16 14:24 104 H 18 211/100 90 L Intake and Output 11/18/16 11/18/16 11/18/16 06:59 14:59 22:59 Intake Total 240 Balance 240 Intake: Oral 240 Other: Voiding Method Toilet Weight 47.627 kg Patient Weight 11/19/16 06:59 Weight 47.627 kg - Constitutional General appearance: no average body habitus, cooperative, disheveled, mild distress, no morbidly obese, no no acute distress, no obese, no severe distress , thin - EENT Eyes: no abnormal pupil, no anicteric sclerae, no disc margins sharp, no edentulous, no EOMI, no PERRLA, no fundus normal, no photophobia, no dentition normal, no poor dentition, no ptosis, no scleral icterus, normal appearance ENT: no hard of hearing, no hearing grossly normal, no NA/AT, normal oropharynx , no other, pharyngeal erythema, no thrush, no tonsillar exudates, no tonsillar swelling Ears: bilateral: normal, bulging - Neck Neck: normal ROM Carotids: bilateral: upstroke normal Thyroid: bilateral: normal size - Respiratory Respiratory: left: diminished, dullness, rales, rhonchi, bilateral: wheezing, prolonged expiration - Cardiovascular Rhythm: regular Heart sounds: normal: S1, S2 Abnormal Heart Sounds: S3 Gallop - Gastrointestinal General gastrointestinal: no absent bowel sounds, decreased bowel sounds, distended, no hepatomegaly, no hyperactive bowel sounds, no normal bowel sounds , no organomegaly, no rigid, no scaphoid, soft, no splenomegaly, no tenderness, no umbilical hernia, no ventral hernia - Integumentary Integumentary: no calor, no cellulitis, no cyanotic, no decreased turgor, no flushed, no jaundiced, normal, no normal turgor, pale, no rash, no ulcer - Neurologic Neurologic: CNII-XII intact - Musculoskeletal Musculoskeletal: gait normal, generalized weakness, strength equal bilaterally - Psychiatric Psychiatric: A&O x's 3, appropriate affect Results CBC & Chem 7: 11/18/16 11:07 11/18/16 11:07 Thrombosis Risk Factor Assmnt - DVT/VTE Prophylaxis DVT/VTE Prophylaxis: Pharmacologic Prophylaxis ordered, Mechanical Prophylaxis ordered - Choose All That Apply Each Factor Represents 1 point: Abnormal pulmonary function (COPD), History of prior major surgery (<1month) Each Risk Factor Represents 2 Points: Age 61-74 years Thrombosis Risk Factor Assessment Total Risk Factor Score: 4 Thrombosis Risk Factor Assessment Level: Moderate Risk Assessment and Plan Plan: 1 severe dyspnea and shortness of breath: Combination of pneumothorax, multiple rib fracture and traumatic fracture along with COPD and pneumonia treat underlying disease. 2 severe traumatic pneumothorax of the left side major 10%, will consult pulmonary and cardiothoracic surgeon no need for chest tube repeat chest x-ray daily and watch the progression or the improvement of the pneumothorax. 3 multiple rib fracture: Continue incentive spirometry continue O2 updraft treatment and pain management. 4 COPD: Continue patient DuoNeb and continue steroid inhaler with Flovent. 5 hypertension: Patient has been on enalapril 10 mg twice a day. 6 DVT prophylaxis: Patient will be on heparin 5000 units subcutaneous twice a day. 7 GI prophylaxis: Patient will be on Pepcid daily. 8 smoking cessation: Nicotine patch will be used for now. 9 CODE STATUS: Full code. Expectation from this admission: Patient be the hospital for more than 2 nights.
[2016-11-19] MEDS: ACETAMINOPHEN TAB 325 MG TAB PO PRN ×3 (00:33→18:42)
[2016-11-19] MEDS: methylPREDNISolone SOD SUCCI 40 MG/ML 1 ML VIAL IV SCH ×2 (00:59→09:19)
[2016-11-19] MEDS: METHOCARBAMOL 750 MG TAB PO SCH ×4 (00:59→22:19)
[2016-11-19] MEDS ORDERED: INSULIN LISPRO (humaLOG) 300 UNIT/3 ML VIAL SQ SCH (07:30)
[2016-11-19] MEDS: SODIUM CHLORIDE 0.9% 1,000 ML IV SCH ×2 (07:38→15:43)
[2016-11-19] MEDS ORDERED: BUDESONIDE 0.5 MG/2 ML NEBU INHALATION SCH (08:00)
[2016-11-19] MEDS: IPRATROPIUM-ALBUTEROL 3 ML NEB INHALATION SCH ×4 (09:33→19:44)
--- NOTE | 2016-11-19 09:57 | P.CNPUL ---
History of Present Illness Consult date: 11/19/16 Reason for consult: dyspnea, pneumothorax, abnormal CXR/CT Chief complaint: Shortness of breath History of present illness: This is a 66-year-old female with history of underlying COPD. She also has a history of hypertension and ongoing tobacco use. She apparently presented to the emergency department on 11/18/2016 which shortness of breath. She apparently fell last week and injured the left side of her chest. She was trying to tough it out at home but the pain became unbearable and shortness of breath got worse and soleus she decided to come to the emergency room to be evaluated. She apparently was found to have a left-sided pneumothorax about 10% apically as well as fractures of the left ribs that #8 #9 position. Apparently a chest tube was then be inserted but it was felt that because pneumothorax relatively small Bhatia just watch her provide her with oxygen therapy and pain relief and that would probably be N now. Anyway the patient is doing about the same today as she was yesterday. She was admitted to Dr. Morgan's service. Review of Systems A 12 point review of system is positive for primarily shortness of breath with deep inspiration and body position changes as well as pain on the left chest area. She has no cough. No phlegm production. No fever no chills. No abdominal discomfort. Past Medical History Past Medical History: COPD, Hypertension, Myocardial Infarction ([place]) Additional Past Medical History / Comment(s): TOLD SILENT TN IN PAST. FX RT PROXIMAL HUMERUS CURRENTLY, IN SLING. Last Myocardial Infarction Date:: UNKNOWN History of Any Multi-Drug Resistant Organisms: None Reported Past Surgical History: Cholecystectomy, Hysterectomy Additional Past Surgical History / Comment(s): EXC OVARIAN CYST. Past Anesthesia/Blood Transfusion Reactions: No Reported Reaction Past Psychological History: No Psychological Hx Reported Smoking Status: Current every day smoker Past Alcohol Use History: Occasional Additional Past Alcohol Use History / Comment(s): SMOKES 1PPD, 40 YEARS. DRINKS ALCOHOL 7-10 PER WEEK. Past Drug Use History: None Reported - Past Family History Mother Family Medical History: Cancer Additional Family Medical History / Comment(s): colon ca-passed from Father Family Medical History: Cancer Additional Family Medical History / Comment(s): skin ca Medications and Allergies Home Medications Medication Instructions Recorded Confirmed Type Aspirin 81 mg PO HS 10/29/16 11/18/16 History Enalapril Maleate [Enalapril 10 mg PO BID 10/29/16 11/18/16 History Maleate] Fluticasone Propionate [Flovent 2 puff INHALATION RT-DAILY 10/29/16 11/18/16 History Hfa 110mcg] Acetaminophen Tab [Tylenol Tab] 650 mg PO Q4H PRN 11/18/16 11/18/16 History Cholecalciferol [Vitamin D3] 1,000 unit PO DAILY 11/18/16 11/18/16 History Cyanocobalamin [Vitamin B-12] 500 mcg PO DAILY 11/18/16 11/18/16 History Allergies Allergy/AdvReac Type Severity Reaction Status Date / Time Iodinated Contrast Media - Allergy Intermediate Rash/Hives Verified 11/18/16 11: 06 Oral and Physical Exam Osteopathic Statement: *. No significant issues noted on an osteopathic structural exam other than those noted in the History and Physical/Consult. Vitals: Vital Signs Temp Pulse Pulse Pulse Resp BP BP 11/19/16 09:34 100 11/19/16 08:00 98.4 F 108 H 18 184/95 11/19/16 04:00 97.2 F L 94 18 156/93 11/19/16 00:00 97.2 F L 119 H 18 166/88 11/18/16 21:13 97 11/18/16 21:01 11/18/16 20:00 97.1 F L 109 H 18 188/97 11/18/16 16:59 96.7 F L 107 H 20 166/93 11/18/16 16:22 97.2 F L 96 17 176/84 11/18/16 16:01 93 17 197/92 11/18/16 15:38 97 11/18/16 15:22 94 11/18/16 15:21 98 17 196/100 11/18/16 14:47 99 17 205/103 11/18/16 14:24 104 H 18 211/100 Pulse Ox 11/19/16 09:34 11/19/16 08:00 95 11/19/16 04:00 97 11/19/16 00:00 97 11/18/16 21:13 11/18/16 21:01 105 H 11/18/16 20:00 97 11/18/16 16:59 95 11/18/16 16:22 97 11/18/16 16:01 97 11/18/16 15:38 11/18/16 15:22 11/18/16 15:21 94 L 11/18/16 14:47 92 L 11/18/16 14:24 90 L Intake and Output 11/18/16 11/19/16 11/19/16 22:59 06:59 14:59 Intake Total 240 1500 Output Total 800 1200 Balance 240 700 -1200 Intake: Oral 240 1500 Output: Urine 800 1200 Other: Voiding Method Toilet Toilet # Voids 2 Weight 47.627 kg 48.6 kg No acute distress, oriented 3. Nasal O2 in place. HEENT examination is grossly unremarkable. Mucous membranes are moist. No oral lesions. Next Supple. Full range of motion. No adenopathy. Cardiovascular examination reveals regular rhythm rate. S1-S2 normal. No S3- S4. No distinct murmur noted. Lungs reveal few scattered rhonchi. No wheezes or crackles. There is some tenderness on palpation in the left chest area. There is no evidence of any subcutaneous emphysema. Abdomen soft bowel sounds are heard. Extremities are intact. Results - Laboratory Findings CBC and BMP: 11/18/16 11:07 11/18/16 11:07 PT/INR, D-dimer PT 10.8 sec (9.0-12.0) 11/18/16 11:07 INR 1.1 (<1.1) 11/18/16 11:07 - Diagnostic Findings Chest x-ray: image reviewed (Left apical pneumothorax is noted.) Assessment and Plan (1) Rib fractures Status: Acute (2) Traumatic pneumothorax Status: Acute Plan: Plan The patient should receive nasal O2. Incentive spirometry should be provided for the patient. The most important thing for this patient would be pain control. Additional recommendations suggestions are forthcoming. Her underlying COPD medications should be resumed. Follow-up chest x-rays can be done. Time with Patient: Greater than 30
[2016-11-19] MEDS: DOXYCYCLINE 100 MG in SODIUM CHLORIDE 0.9% 100 ML IVPB SCH (10:08)
[2016-11-19] MEDS: FAMOTIDINE 20 MG TAB PO SCH (10:21)
[2016-11-19] MEDS: HEPARIN SODIUM,PORCINE 5,000 UNIT/ML 1 ML VIAL SQ SCH ×2 (10:21→22:19)
[2016-11-19] MEDS: LISINOPRIL 20 MG TAB PO SCH ×2 (10:21→22:16)
[2016-11-19] MEDS: NICOTINE 14MG/24HR PATCH TRANSDERM SCH (10:22)
[2016-11-19 10:53] LABS: Hemoglobin A1C 5.1 % (4.2-6.1)
[2016-11-19 10:57] VITALS: BMI 17.8
[2016-11-19] MEDS: CHOLECALCIFEROL 1,000 UNIT TAB PO SCH (11:24)
[2016-11-19] MEDS: CYANOCOBALAMIN 500 MCG TAB PO SCH (11:24)
[2016-11-19] MEDS ORDERED: cloNIDine HCL 0.1 MG TAB PO PRN (11:33)
--- NOTE | 2016-11-19 15:21 | P.PN ---
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 Sifuentes. Patient had fell on past week on the left side in the left have severe pain and discomfort ended up having significant dyspnea and shortness of breath for the last few days become much worse today ended up coming to the emergency department at [facility] where was seen and evaluated x-ray of the rib shows fracture in the rib 8 and 9 with left apical pneumothorax measuring about 10%. Cardiothoracic surgeon were consulted and decided based on the current pneumothorax no need for any surgical repair hour chest tube at that time to continue conservative management and continue consultation as an inpatient. Patient also has an early infiltrate in the base was started on doxycycline and continue updraft treatment and O2 and admitted to the hospital with the above problem. 11/19: Patient denies any new complaints. Breathing status is currently stable. We'll plan to monitor overnight and possible discharge by tomorrow. Objective - Vital Signs Vital signs: Vital Signs Temp 98.4 F 11/19/16 08:00 Pulse 112 H 11/19/16 09:51 Resp 18 11/19/16 08:00 BP 184/95 11/19/16 08:00 Pulse Ox 95 11/19/16 08:00 Intake & Output 11/18/16 11/19/16 11/19/16 18:59 06:59 18:59 Intake Total 240 1500 Output Total 800 1200 Balance 240 700 -1200 Weight 47.627 kg 48.6 kg Intake: Oral 240 1500 Output: Urine 800 1200 Other: Voiding Method Toilet Toilet # Voids 2 - Exam General appearance: no average body habitus, cooperative, disheveled, mild distress, no morbidly obese, no no acute distress, no obese, no severe distress , thin - EENT Eyes: no abnormal pupil, no anicteric sclerae, no disc margins sharp, no edentulous, no EOMI, no PERRLA, no fundus normal, no photophobia, no dentition normal, no poor dentition, no ptosis, no scleral icterus, normal appearance ENT: no hard of hearing, no hearing grossly normal, no NA/AT, normal oropharynx , no other, pharyngeal erythema, no thrush, no tonsillar exudates, no tonsillar swelling Ears: bilateral: normal, bulging - Neck Neck: normal ROM Carotids: bilateral: upstroke normal Thyroid: bilateral: normal size - Respiratory Respiratory: left: diminished, dullness, rales, rhonchi, bilateral: wheezing, prolonged expiration - Cardiovascular Rhythm: regular Heart sounds: normal: S1, S2 Abnormal Heart Sounds: S3 Gallop - Gastrointestinal General gastrointestinal: no absent bowel sounds, decreased bowel sounds, distended, no hepatomegaly, no hyperactive bowel sounds, no normal bowel sounds , no organomegaly, no rigid, no scaphoid, soft, no splenomegaly, no tenderness, no umbilical hernia, no ventral hernia - Integumentary Integumentary: no calor, no cellulitis, no cyanotic, no decreased turgor, no flushed, no jaundiced, normal, no normal turgor, pale, no rash, no ulcer - Neurologic Neurologic: CNII-XII intact - Musculoskeletal Musculoskeletal: gait normal, generalized weakness, strength equal bilaterally - Psychiatric Psychiatric: A&O x's 3, appropriate affect - Labs CBC & Chem 7: 11/18/16 11:07 11/18/16 11:07 Assessment and Plan Plan: 1 severe dyspnea and shortness of breath: Combination of pneumothorax, multiple rib fracture and traumatic fracture along with COPD and pneumonia treat underlying disease. 2 severe traumatic pneumothorax of the left side major 10%, will consult pulmonary and cardiothoracic surgeon no need for chest tube repeat chest x-ray daily and watch the progression or the improvement of the pneumothorax. 3 multiple rib fracture: Continue incentive spirometry continue O2 updraft treatment and pain management. 4 COPD: Continue patient DuoNeb and continue steroid inhaler with Flovent. 5 hypertension: Patient has been on enalapril 10 mg twice a day. 6 DVT prophylaxis: Patient will be on heparin 5000 units subcutaneous twice a day. 7 GI prophylaxis: Patient will be on Pepcid daily. 8 smoking cessation: Nicotine patch will be used for now. 9 CODE STATUS: Full code. Discharge plan: to be determined Impression and plan of care have been directed as dictated by the signing physician. Yoon Toscano nurse practitioner acting as scribe for signing physician. Time with Patient: Greater than 30
[2016-11-19] MEDS: SYMBICORT 160-4.5 MCG INHALER INHALATION SCH (19:44)
[2016-11-19] MEDS: ASPIRIN 81 MG CHEW PO SCH (22:17)
[2016-11-19] MEDS: LIDOCAINE 5% PATCH TOPICAL SCH ×2 (22:19→23:32)
[2016-11-20 06:42] LABS: Anion Gap 10 mmol/L; Blood Urea Nitrogen 11 mg/dL (7-17); Calcium 8.8 mg/dL (8.4-10.2); Carbon Dioxide 23 mmol/L (22-30); Chloride 99 mmol/L (98-107); Glucose 89 mg/dL (74-99); Non-African American GFR(MDRD) >60 (>60 ml/min/1.73 sqM); Potassium 4.3 mmol/L (3.5-5.1); Sodium 132 mmol/L (137-145)
--- NOTE | 2016-11-20 08:07 | XR ---
EXAMINATION TYPE: XR chest 2V DATE OF EXAM: 11/20/2016 7:59 AM COMPARISON: 11/18/2016 HISTORY: Shortness of breath TECHNIQUE: Frontal and lateral views of the chest are obtained. FINDINGS: Left-sided pneumothorax appears to be smaller in size and is estimated at less than 5%. There is hydr opneumothorax component seen at the left lung posteriorly. Left basilar pleural-parenchymal opacity i s slightly progressive and may reflect atelectasis, contusion and/or a small amount of hemothorax. Le ft-sided rib fractures again noted. The right lung is clear. Cardiomediastinal silhouette is stable. IMPRESSION: 1. Left apical pneumothorax is smaller in size. 2. Hydropneumothorax component is noted left upper lobe posteriorly. 3.Left basilar pleural-parenchymal opacity is slightly progressive and may reflect atelectasis, contu kimo and/or a small amount of hemothorax. Recommendation: CT chest
[2016-11-20] MEDS: IPRATROPIUM-ALBUTEROL 3 ML NEB INHALATION SCH ×4 (08:18→19:50)
[2016-11-20] MEDS: SYMBICORT 160-4.5 MCG INHALER INHALATION SCH ×2 (08:19→19:52)
[2016-11-20] MEDS: LISINOPRIL 20 MG TAB PO SCH ×2 (09:05→21:20)
[2016-11-20] MEDS: FAMOTIDINE 20 MG TAB PO SCH (09:08)
[2016-11-20] MEDS: METHOCARBAMOL 750 MG TAB PO SCH ×4 (09:08→21:27)
[2016-11-20] MEDS: NICOTINE 14MG/24HR PATCH TRANSDERM SCH (09:08)
[2016-11-20] MEDS: HEPARIN SODIUM,PORCINE 5,000 UNIT/ML 1 ML VIAL SQ SCH ×3 (09:08→21:27)
[2016-11-20] MEDS: ACETAMINOPHEN TAB 325 MG TAB PO PRN ×3 (09:27→21:22)
--- NOTE | 2016-11-20 10:45 | P.PN ---
Subjective Progress note dated 11/20/2016 This is a 66-year-old female who was seen yesterday in consultation. She fell last week and injured the left chest. She was found to have multiple rib fractures on the left small left apical pneumothorax and possibly pulmonary contusion and small hydropneumothorax. Today's chest x-rays improved. I she mostly needs pain control incentive spirometry and breathing treatments. Anyway please see my consultation from yesterday. The patient's a bit better today. Objective - Vital Signs Vital signs: Vital Signs Temp 97.6 F 11/20/16 07:30 Pulse 97 11/20/16 08:30 Resp 18 11/20/16 08:30 BP 174/82 11/20/16 07:35 Pulse Ox 93 L 11/20/16 08:21 Intake & Output 11/19/16 11/20/16 11/20/16 18:59 06:59 18:59 Intake Total 866 180 Output Total 1200 600 Balance -334 -420 Weight 48.6 kg 49.9 kg Intake: IV 450 Sodium Chloride 0.9% 1, 450 000 ml @ 75 mls/hr IV . [id number] [facility] Rx#:[id number] Oral 416 180 Output: Urine 1200 600 Other: Voiding Method Toilet Toilet Toilet # Voids 1 # Bowel Movements 1 - Exam No acute distress, oriented 3. HEENT examination is grossly unremarkable. Mucous membranes are moist. Neck supple. Full range of motion. No adenopathy or thyromegaly. Cardiovascular examination reveals regular rhythm rate. S1 and S2 normal. Lungs are clear breath sounds are equal. No subcutaneous emphysema. Abdomen soft bowel sounds are heard. Extremities are intact. - Labs CBC & Chem 7: 11/18/16 11:07 11/20/16 05:54 Labs: Abnormal Lab Results - Last 24 Hours (Table) 11/20/16 Range/Units 05:54 Sodium 132 L (137-145) mmol/L Creatinine 0.44 L (0.52-1.04) mg/dL Assessment and Plan (1) Rib fractures Status: Acute (2) Traumatic pneumothorax Status: Acute Plan: Plan The patient should receive nasal O2. Incentive spirometry should be provided for the patient. The most important thing for this patient would be pain control. Additional recommendations suggestions are forthcoming. Her underlying COPD medications should be resumed. Follow-up chest x-rays can be done. Plan dated 11/20/2016 We'll continue to monitor closely. The patient's pneumothorax seems to be resolving. She has better pain control. Her respiratory status is reasonable. We'll continue to follow. Time with Patient: Less than 30
[2016-11-20] MEDS: SODIUM CHLORIDE 0.9% 1,000 ML IV SCH (11:54)
[2016-11-20] MEDS: CYANOCOBALAMIN 500 MCG TAB PO SCH (12:07)
[2016-11-20] MEDS: CHOLECALCIFEROL 1,000 UNIT TAB PO SCH (12:07)
[2016-11-20 12:21] VITALS: RESP 16
--- NOTE | 2016-11-20 13:20 | CT ---
EXAMINATION TYPE: CT chest wo con DATE OF EXAM: 11/20/2016 12:49 PM COMPARISON: Prior chest CT 07 February 2011, chest x-ray 20 November 2016 HISTORY: Patient complains of traumatic pneumothorax and broken ribs CT DLP: 125 mGycm Automated exposure control for dose reduction was used. FINDINGS: Left hydropneumothorax is present, pneumothorax is minimal, posterior fluid collection shows associat ed compressive atelectasis. Some interstitial changes are present peripherally in the right lung and also along the fissure, some fluid present in the inferior major fissure on the right. Basilar atelec tatic changes also present anteriorly at the lung bases. Left-sided posterior lateral eighth ninth an d 10th rib fractures show minimal displacement. There is no mediastinal, axillary, or hilar adenopath y. There are coronary artery calcifications. IMPRESSION: BILATERAL PLEURAL EFFUSIONS, THERE MAY BE A COMPONENT OF VOLUME OVERLOAD. HYDROPNEUMOTHORAX ON THE LE FT. MULTIPLE LEFT-SIDED RIB FRACTURES.
--- NOTE | 2016-11-20 14:33 | P.PN ---
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 Sifuentes. Patient had fell on past week on the left side in the left have severe pain and discomfort ended up having significant dyspnea and shortness of breath for the last few days become much worse today ended up coming to the emergency department at [facility] where was seen and evaluated x-ray of the rib shows fracture in the rib 8 and 9 with left apical pneumothorax measuring about 10%. Cardiothoracic surgeon were consulted and decided based on the current pneumothorax no need for any surgical repair hour chest tube at that time to continue conservative management and continue consultation as an inpatient. Patient also has an early infiltrate in the base was started on doxycycline and continue updraft treatment and O2 and admitted to the hospital with the above problem. 11/19: Patient denies any new complaints. Breathing status is currently stable. We'll plan to monitor overnight and possible discharge by tomorrow. 11/20: Repeat chest x-ray shows left apical pneumothorax is smaller in size. Hydropneumothorax component noted in the left upper lobe posteriorly. Left basilar pleural potential obesity slightly progressive and may reflect atelectasis, contusion or small amount of hemothorax. CAT scan was recommended which showed bilateral pleural effusions. There may be component of volume overload. Hydropneumothorax on the left. Multiple left-sided rib fractures. IV fluids changed to saline lock. Repeat chest x-ray in the morning. Possible discharge home tomorrow. Objective - Vital Signs Vital signs: Vital Signs Temp 97.5 F L 11/20/16 11:10 Pulse 99 11/20/16 12:00 Resp 16 11/20/16 12:00 BP 118/80 11/20/16 12:00 Pulse Ox 94 L 11/20/16 12:00 Intake & Output 11/19/16 11/20/16 11/20/16 18:59 06:59 18:59 Intake Total 866 180 Output Total 1200 600 Balance -334 -420 Weight 48.6 kg 49.9 kg Intake: IV 450 Sodium Chloride 0.9% 1, 450 000 ml @ 75 mls/hr IV . [id number] [facility] Rx#:[id number] Oral 416 180 Output: Urine 1200 600 Other: Voiding Method Toilet Toilet Toilet # Voids 1 # Bowel Movements 1 - Exam General appearance: no average body habitus, cooperative, disheveled, mild distress, no morbidly obese, no no acute distress, no obese, no severe distress , thin - EENT Eyes: no abnormal pupil, no anicteric sclerae, no disc margins sharp, no edentulous, no EOMI, no PERRLA, no fundus normal, no photophobia, no dentition normal, no poor dentition, no ptosis, no scleral icterus, normal appearance ENT: no hard of hearing, no hearing grossly normal, no NA/AT, normal oropharynx , no other, pharyngeal erythema, no thrush, no tonsillar exudates, no tonsillar swelling Ears: bilateral: normal, bulging - Neck Neck: normal ROM Carotids: bilateral: upstroke normal Thyroid: bilateral: normal size - Respiratory Respiratory: left: diminished, dullness, rales, rhonchi, bilateral: wheezing, prolonged expiration - Cardiovascular Rhythm: regular Heart sounds: normal: S1, S2 Abnormal Heart Sounds: S3 Gallop - Gastrointestinal General gastrointestinal: no absent bowel sounds, decreased bowel sounds, distended, no hepatomegaly, no hyperactive bowel sounds, no normal bowel sounds , no organomegaly, no rigid, no scaphoid, soft, no splenomegaly, no tenderness, no umbilical hernia, no ventral hernia - Integumentary Integumentary: no calor, no cellulitis, no cyanotic, no decreased turgor, no flushed, no jaundiced, normal, no normal turgor, pale, no rash, no ulcer - Neurologic Neurologic: CNII-XII intact - Musculoskeletal Musculoskeletal: gait normal, generalized weakness, strength equal bilaterally - Psychiatric Psychiatric: A&O x's 3, appropriate affect - Labs CBC & Chem 7: 11/18/16 11:07 11/20/16 05:54 Labs: Abnormal Lab Results - Last 24 Hours (Table) 11/20/16 Range/Units 05:54 Sodium 132 L (137-145) mmol/L Creatinine 0.44 L (0.52-1.04) mg/dL Assessment and Plan Plan: 1 severe dyspnea and shortness of breath: Combination of pneumothorax, multiple rib fracture and traumatic fracture along with COPD and atelectasis treat underlying disease. 2 severe traumatic pneumothorax of the left side major 10%, will consult pulmonary and cardiothoracic surgeon no need for chest tube repeat chest x-ray daily and watch the progression or the improvement of the pneumothorax. 3 multiple rib fracture: Continue incentive spirometry continue O2 updraft treatment and pain management. 4 COPD: Continue patient DuoNeb and continue steroid inhaler with Flovent. 5 hypertension: Patient has been on enalapril 10 mg twice a day. 6 DVT prophylaxis: Patient will be on heparin 5000 units subcutaneous twice a day. 7 GI prophylaxis: Patient will be on Pepcid daily. 8 smoking cessation: Nicotine patch will be used for now. 9 CODE STATUS: Full code. Discharge plan: Return home Impression and plan of care have been directed as dictated by the signing physician. Yoon Toscano nurse practitioner acting as scribe for signing physician. Time with Patient: Greater than 30
[2016-11-20] MEDS: ASPIRIN 81 MG CHEW PO SCH (21:20)
[2016-11-20] MEDS: LIDOCAINE 5% PATCH TOPICAL SCH (23:26)
[2016-11-21 06:28] LABS: CH 31.5; CHCM 32.4; HCT 35.7 % (34.0-46.0); HDW 2.57; HGB 11.6 gm/dL (11.4-16.0); MCH 31.6 pg (25.0-35.0); MCHC 32.4 g/dL (31.0-37.0); MCV 97.4 fL (80.0-100.0); Mean Platelet Volume 6.5; RBC 3.67 m/uL (3.80-5.40); RDW 13.2 % (11.5-15.5); WBC 9.8 k/uL (3.8-10.6)
--- NOTE | 2016-11-21 07:26 | XR ---
EXAMINATION TYPE: XR chest 2V DATE OF EXAM: 11/21/2016 6:30 AM COMPARISON: 11/20/2016 HISTORY: Shortness of breath TECHNIQUE: Frontal and lateral views of the chest are obtained. FINDINGS: Tiny left apical pneumothorax persists. Hydropneumothorax component appears to have improved. Persistent left basilar opacity and mild patchy density right medial lung base. Heart size is stable. Mediastinal structures are stable and grossly unremarkable. No evidence for hilar prominence. Left-sided rib fractures. IMPRESSION: 1. Tiny left apical pneumothorax persists. Hydropneumothorax component appears to have improved. Persistent left basilar opacity and mild patchy density right medial lung base.
[2016-11-21] MEDS: HEPARIN SODIUM,PORCINE 5,000 UNIT/ML 1 ML VIAL SQ SCH ×2 (07:43→07:50)
[2016-11-21] MEDS: FAMOTIDINE 20 MG TAB PO SCH (07:43)
[2016-11-21] MEDS: METHOCARBAMOL 750 MG TAB PO SCH ×4 (07:44→21:31)
[2016-11-21] MEDS: LISINOPRIL 20 MG TAB PO SCH ×2 (07:44→21:32)
[2016-11-21] MEDS: NICOTINE 14MG/24HR PATCH TRANSDERM SCH ×2 (07:44→07:51)
[2016-11-21] MEDS: CYANOCOBALAMIN 500 MCG TAB PO SCH (07:45)
[2016-11-21] MEDS: CHOLECALCIFEROL 1,000 UNIT TAB PO SCH (07:45)
[2016-11-21] MEDS: ACETAMINOPHEN TAB 325 MG TAB PO PRN ×4 (07:47→21:32)
[2016-11-21] MEDS: IPRATROPIUM-ALBUTEROL 3 ML NEB INHALATION SCH ×4 (07:58→20:03)
[2016-11-21] MEDS: SYMBICORT 160-4.5 MCG INHALER INHALATION SCH ×2 (07:58→20:03)
[2016-11-21] MEDS ORDERED: SENNOSIDES-DOCUSATE SODIUM 1 EACH TAB PO STA (09:22)
[2016-11-21] MEDS: amLODIPine 5 MG TAB PO SCH (12:59)
--- NOTE | 2016-11-21 13:14 | P.PN ---
Subjective Progress note dated 11/20/2016 This is a 66-year-old female who was seen yesterday in consultation. She fell last week and injured the left chest. She was found to have multiple rib fractures on the left small left apical pneumothorax and possibly pulmonary contusion and small hydropneumothorax. Today's chest x-rays improved. I she mostly needs pain control incentive spirometry and breathing treatments. Anyway please see my consultation from yesterday. The patient's a bit better today. Progress note dated 11/21/2016 66-year-old female who probably will be discharged later today or tomorrow. She came with a traumatic pneumothorax pulmonary contusion and hemothorax. She had rib fractures #8 and #9 on the left side. Feeling generally well. Minimally short of breath. Bring up some clear phlegm. No fever no chills. No nausea vomiting or diarrhea. I did tell the patient that the big thing for her will be adequate pain control and use of incentive spirometry. She seems understand. Objective - Vital Signs Vital signs: Vital Signs Temp 100.2 F H 11/21/16 07:57 Pulse 110 H 11/21/16 12:00 Resp 16 11/21/16 11:59 BP 187/101 11/21/16 07:57 Pulse Ox 93 L 11/21/16 08:11 Intake & Output 11/20/16 11/21/16 11/21/16 18:59 06:59 18:59 Intake Total 602 180 160 Output Total 650 Balance -48 180 160 Weight 50.9 kg Intake: Intake, IV Titration 200 Amount Sodium Chloride 0.9% 1, 200 000 ml @ 75 mls/hr IV . [id number] [facility] Rx#:[id number] Oral 402 180 160 Output: Urine 650 Other: Voiding Method Toilet Toilet Toilet # Voids 2 - Exam No acute distress, oriented 3. HEENT examination is grossly unremarkable. Mucous membranes are moist. Neck supple. Full range of motion. No adenopathy or thyromegaly. Cardiovascular examination reveals regular rhythm rate. S1 and S2 normal. Lungs are clear breath sounds are equal. No subcutaneous emphysema. The patient is taking deeper breaths. Abdomen soft bowel sounds are heard. Extremities are intact. - Labs CBC & Chem 7: 11/21/16 05:59 11/20/16 05:54 Labs: Abnormal Lab Results - Last 24 Hours (Table) 11/21/16 Range/Units 05:59 RBC 3.67 L (3.80-5.40) m/uL Assessment and Plan (1) Rib fractures Status: Acute (2) Traumatic pneumothorax Status: Acute Plan: Plan The patient should receive nasal O2. Incentive spirometry should be provided for the patient. The most important thing for this patient would be pain control. Additional recommendations suggestions are forthcoming. Her underlying COPD medications should be resumed. Follow-up chest x-rays can be done. Plan dated 11/20/2016 We'll continue to monitor closely. The patient's pneumothorax seems to be resolving. She has better pain control. Her respiratory status is reasonable. We'll continue to follow. Plan dated 11/21/2016 The patient's doing well. Will likely be discharged tomorrow. No additional recommendations are made. We'll continue to follow. Guarded. She does see Dr. Merchant is her primary doctor and also sees Dr. [facility]. She does not see any other doctors. Time with Patient: Less than 30
--- NOTE | 2016-11-21 13:49 | P.PN ---
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 Sifuentes. Patient had fell on past week on the left side in the left have severe pain and discomfort ended up having significant dyspnea and shortness of breath for the last few days become much worse today ended up coming to the emergency department at [facility] where was seen and evaluated x-ray of the rib shows fracture in the rib 8 and 9 with left apical pneumothorax measuring about 10%. Cardiothoracic surgeon were consulted and decided based on the current pneumothorax no need for any surgical repair hour chest tube at that time to continue conservative management and continue consultation as an inpatient. Patient also has an early infiltrate in the base was started on doxycycline and continue updraft treatment and O2 and admitted to the hospital with the above problem. 11/19: Patient denies any new complaints. Breathing status is currently stable. We'll plan to monitor overnight and possible discharge by tomorrow. 11/20: Repeat chest x-ray shows left apical pneumothorax is smaller in size. Hydropneumothorax component noted in the left upper lobe posteriorly. Left basilar pleural potential obesity slightly progressive and may reflect atelectasis, contusion or small amount of hemothorax. CAT scan was recommended which showed bilateral pleural effusions. There may be component of volume overload. Hydropneumothorax on the left. Multiple left-sided rib fractures. IV fluids changed to saline lock. Repeat chest x-ray in the morning. Possible discharge home tomorrow. 11/21: Blood pressures have been high for which amlodipine added. Repeat chest x- ray shows tiny left apical pneumothorax. Hydropneumothorax component appears to have improved. Persistent left basilar opacity and mild patchy density right medial lung base. Plan for discharge home tomorrow. Objective - Vital Signs Vital signs: Vital Signs Temp 100.2 F H 11/21/16 07:57 Pulse 110 H 11/21/16 12:00 Resp 16 11/21/16 11:59 BP 187/101 11/21/16 07:57 Pulse Ox 93 L 11/21/16 08:11 Intake & Output 11/20/16 11/21/16 11/21/16 18:59 06:59 18:59 Intake Total 602 180 160 Output Total 650 Balance -48 180 160 Weight 50.9 kg Intake: Intake, IV Titration 200 Amount Sodium Chloride 0.9% 1, 200 000 ml @ 75 mls/hr IV . [id number] [facility] Rx#:[id number] Oral 402 180 160 Output: Urine 650 Other: Voiding Method Toilet Toilet Toilet # Voids 2 - Exam General appearance: no average body habitus, cooperative, disheveled, mild distress, no morbidly obese, no no acute distress, no obese, no severe distress , thin - EENT Eyes: no abnormal pupil, no anicteric sclerae, no disc margins sharp, no edentulous, no EOMI, no PERRLA, no fundus normal, no photophobia, no dentition normal, no poor dentition, no ptosis, no scleral icterus, normal appearance ENT: no hard of hearing, no hearing grossly normal, no NA/AT, normal oropharynx , no other, pharyngeal erythema, no thrush, no tonsillar exudates, no tonsillar swelling Ears: bilateral: normal, bulging - Neck Neck: normal ROM Carotids: bilateral: upstroke normal Thyroid: bilateral: normal size - Respiratory Respiratory: left: diminished, dullness, rales, rhonchi, bilateral: wheezing, prolonged expiration - Cardiovascular Rhythm: regular Heart sounds: normal: S1, S2 Abnormal Heart Sounds: S3 Gallop - Gastrointestinal General gastrointestinal: no absent bowel sounds, decreased bowel sounds, distended, no hepatomegaly, no hyperactive bowel sounds, no normal bowel sounds , no organomegaly, no rigid, no scaphoid, soft, no splenomegaly, no tenderness, no umbilical hernia, no ventral hernia - Integumentary Integumentary: no calor, no cellulitis, no cyanotic, no decreased turgor, no flushed, no jaundiced, normal, no normal turgor, pale, no rash, no ulcer - Neurologic Neurologic: CNII-XII intact - Musculoskeletal Musculoskeletal: gait normal, generalized weakness, strength equal bilaterally - Psychiatric Psychiatric: A&O x's 3, appropriate affect - Labs CBC & Chem 7: 11/21/16 05:59 11/20/16 05:54 Labs: Abnormal Lab Results - Last 24 Hours (Table) 11/21/16 Range/Units 05:59 RBC 3.67 L (3.80-5.40) m/uL Assessment and Plan Plan: 1 severe dyspnea and shortness of breath: Combination of pneumothorax, multiple rib fracture and traumatic fracture along with COPD and atelectasis treat underlying disease. 2 severe traumatic pneumothorax of the left side major 10%, will consult pulmonary and cardiothoracic surgeon no need for chest tube repeat chest x-ray daily and watch the progression or the improvement of the pneumothorax. 3 multiple rib fracture: Continue incentive spirometry continue O2 updraft treatment and pain management. 4 COPD: Continue patient DuoNeb and continue steroid inhaler with Flovent. 5 hypertension: Patient has been on enalapril 10 mg twice a day. Amlodipine added. 6 DVT prophylaxis: Patient will be on heparin 5000 units subcutaneous twice a day. 7 GI prophylaxis: Patient will be on Pepcid daily. 8 smoking cessation: Nicotine patch will be used for now. 9 CODE STATUS: Full code. Discharge plan: Return home Friday Impression and plan of care have been directed as dictated by the signing physician. Yoon Toscano nurse practitioner acting as scribe for signing physician. Time with Patient: Greater than 30
[2016-11-21] MEDS: ASPIRIN 81 MG CHEW PO SCH (21:32)
[2016-11-21] MEDS: LIDOCAINE 5% PATCH TOPICAL SCH (21:34)
[2016-11-22] MEDS: ACETAMINOPHEN TAB 325 MG TAB PO PRN ×2 (05:29→10:27)
[2016-11-22] MEDS: IPRATROPIUM-ALBUTEROL 3 ML NEB INHALATION SCH ×2 (07:12→11:16)
[2016-11-22] MEDS: SYMBICORT 160-4.5 MCG INHALER INHALATION SCH (07:12)
[2016-11-22] MEDS: NICOTINE 14MG/24HR PATCH TRANSDERM SCH (08:03)
[2016-11-22] MEDS: METHOCARBAMOL 750 MG TAB PO SCH (08:03)
[2016-11-22] MEDS: HEPARIN SODIUM,PORCINE 5,000 UNIT/ML 1 ML VIAL SQ SCH (08:03)
[2016-11-22] MEDS: CYANOCOBALAMIN 500 MCG TAB PO SCH (08:04)
[2016-11-22] MEDS: CHOLECALCIFEROL 1,000 UNIT TAB PO SCH (08:04)
[2016-11-22] MEDS: amLODIPine 5 MG TAB PO SCH (08:04)
[2016-11-22] MEDS: FAMOTIDINE 20 MG TAB PO SCH (08:04)
[2016-11-22] MEDS: LISINOPRIL 20 MG TAB PO SCH (08:04)
[2016-11-22 08:09] VITALS: BP 179/96; PULSE 122; TEMP 97.4
--- NOTE | 2016-11-22 11:55 | P.PN ---
Subjective Progress note dated 11/20/2016 This is a 66-year-old female who was seen yesterday in consultation. She fell last week and injured the left chest. She was found to have multiple rib fractures on the left small left apical pneumothorax and possibly pulmonary contusion and small hydropneumothorax. Today's chest x-rays improved. I she mostly needs pain control incentive spirometry and breathing treatments. Anyway please see my consultation from yesterday. The patient's a bit better today. Progress note dated 11/21/2016 66-year-old female who probably will be discharged later today or tomorrow. She came with a traumatic pneumothorax pulmonary contusion and hemothorax. She had rib fractures #8 and #9 on the left side. Feeling generally well. Minimally short of breath. Bring up some clear phlegm. No fever no chills. No nausea vomiting or diarrhea. I did tell the patient that the big thing for her will be adequate pain control and use of incentive spirometry. She seems understand. Progress note dated 11/22/2016 66-year-old female who fell last week. She likely will be discharged home today. The patient came in with atretic traumatic pneumothorax Pulmicort contusion and small hemothorax. She also had rib fractures on the left side apposition 89. Feeling well. Still on a bit of oxygen at 1 L. Hopefully that will be able to be weaned off before discharge. Other than that she's doing relatively relatively well. Feeling well. A chest x-ray was apparently just done. Objective - Vital Signs Vital signs: Vital Signs Temp 97.4 F L 11/22/16 08:00 Pulse 122 H 11/22/16 08:00 Resp 16 11/22/16 08:00 BP 179/96 11/22/16 08:00 Pulse Ox 96 11/22/16 08:00 Intake & Output 11/21/16 11/22/16 11/22/16 18:59 06:59 18:59 Intake Total 340 600 280 Balance 340 600 280 Weight 51.2 kg Intake: Oral 340 600 280 Other: Voiding Method Toilet Toilet Toilet # Voids 2 - Exam No acute distress, oriented 3. HEENT examination is grossly unremarkable. Mucous membranes are moist. Neck supple. Full range of motion. No adenopathy or thyromegaly. Cardiovascular examination reveals regular rhythm rate. S1 and S2 normal. Lungs are clear breath sounds are equal. No subcutaneous emphysema. The patient is taking deeper breaths. Abdomen soft bowel sounds are heard. Extremities are intact. - Labs CBC & Chem 7: 11/21/16 05:59 11/20/16 05:54 Assessment and Plan (1) Rib fractures Status: Acute (2) Traumatic pneumothorax Status: Acute Plan: Plan The patient should receive nasal O2. Incentive spirometry should be provided for the patient. The most important thing for this patient would be pain control. Additional recommendations suggestions are forthcoming. Her underlying COPD medications should be resumed. Follow-up chest x-rays can be done. Plan dated 11/20/2016 We'll continue to monitor closely. The patient's pneumothorax seems to be resolving. She has better pain control. Her respiratory status is reasonable. We'll continue to follow. Plan dated 11/21/2016 The patient's doing well. Will likely be discharged tomorrow. No additional recommendations are made. We'll continue to follow. Guarded. She does see Dr. Merchant is her primary doctor and also sees [facility]. She does not see any other doctors. Plan dated 11/22/2016 The patient's doing well. The patient will follow-up with Dr. Merchant. The patient will likely be discharged home today. Chest x-ray was done. She also follow up with her orthopedic surgeon, Dr. Sifuentes. No additional recommendations are made. I do recommend patient hold the pillow against her chest when she coughs sneezes or moves around just for comfort. Time with Patient: Less than 30
--- NOTE | 2016-11-22 12:11 | XR ---
EXAMINATION TYPE: XR chest 2V DATE OF EXAM: 11/22/2016 11:47 AM COMPARISON: 11/21/2016 HISTORY: 66-year-old female follow-up pneumonia TECHNIQUE: Frontal and lateral views FINDINGS: Heart is normal size. Aorta and pulmonary vasculature within normal limits. There is interval slight decrease in size of the small left pleural effusion. Some patchy bibasilar opacities remain. No appre ciable pneumothorax. Partially visualized fixation hardware in the proximal right humerus. IMPRESSION: 1. Small left pleural effusion slightly decreased in size from prior. 2. Bibasilar patchy atelectasis or infiltrates persist. 3. No appreciable pneumothorax.
--- NOTE | 2016-11-22 14:09 | P.DS ---
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 Sifuentes. Patient had fell on past week on the left side in the left have severe pain and discomfort ended up having significant dyspnea and shortness of breath for the last few days become much worse today ended up coming to the emergency department at [facility] where was seen and evaluated x-ray of the rib shows fracture in the rib 8 and 9 with left apical pneumothorax measuring about 10%. Cardiothoracic surgeon were consulted and decided based on the current pneumothorax no need for any surgical repair hour chest tube at that time to continue conservative management and continue consultation as an inpatient. Patient also has an early infiltrate in the base was started on doxycycline and continue updraft treatment and O2 and admitted to the hospital with the above problem. 11/19: Patient denies any new complaints. Breathing status is currently stable. We'll plan to monitor overnight and possible discharge by tomorrow. 11/20: Repeat chest x-ray shows left apical pneumothorax is smaller in size. Hydropneumothorax component noted in the left upper lobe posteriorly. Left basilar pleural potential obesity slightly progressive and may reflect atelectasis, contusion or small amount of hemothorax. CAT scan was recommended which showed bilateral pleural effusions. There may be component of volume overload. Hydropneumothorax on the left. Multiple left-sided rib fractures. IV fluids changed to saline lock. Repeat chest x-ray in the morning. Possible discharge home tomorrow. 11/21: Blood pressures have been high for which amlodipine added. Repeat chest x- ray shows tiny left apical pneumothorax. Hydropneumothorax component appears to have improved. Persistent left basilar opacity and mild patchy density right medial lung base. 11/22: Repeat chest x-ray reveals small left pleural effusion slightly decreased in size from prior. Bibasilar patchy atelectasis or infiltrates persist. No appreciable pneumothorax. Patient will be discharged home today in stable condition. Discharge Diagnoses: 1 severe dyspnea and shortness of breath: Combination of pneumothorax, multiple rib fracture and traumatic fracture along with COPD and atelectasis 2 severe traumatic pneumothorax of the left side major 10% 3 multiple rib fracture: Continue incentive spirometry 4 COPD, stable 5 hypertension 6 smoking cessation: Nicotine patch will be used for now. Discharge plan: Return home Impression and plan of care have been directed as dictated by the signing physician. Yoon Toscano nurse practitioner acting as scribe for signing physician. Patient Condition at Discharge: Good Plan - Discharge Summary New Discharge Prescriptions: HYDROcodone/APAP 5-325MG [[place] 5-325] 1 each PO Q4-6H PRN #90 tab PRN Reason: Moderate Pain Ipratropium-Albuterol Nebulize [Duoneb 0.5 mg-3 mg/3 ml Soln] 3 ml INHALATION RT -QID #120 ampul.neb Lidocaine 5% Patch [Lidoderm 5% Patch] 1 patch TOPICAL HS #14 patch Lisinopril [Zestril] 20 mg PO BID #60 tab Methocarbamol [Robaxin] 750 mg PO TID #60 tab Nicotine 14Mg/24Hr Patch [Habitrol] 1 patch TRANSDERM DAILY #30 patch amLODIPine [Norvasc] 5 mg PO DAILY #30 tab Discharge Medication List Aspirin 81 mg PO HS 10/29/16 [History] Fluticasone Propionate [Flovent Hfa 110mcg] 2 puff INHALATION RT-DAILY 10/29/16 [History] Acetaminophen Tab [Tylenol] 650 mg PO Q4H PRN 11/18/16 [History] Cholecalciferol [Vitamin D3] 1,000 unit PO DAILY 11/18/16 [History] Cyanocobalamin [Vitamin B-12] 500 mcg PO DAILY 11/18/16 [History] HYDROcodone/APAP 5-325MG [[place]way 5-325] 1 each PO Q4-6H PRN #90 tab 11/22/16 [Rx] Ipratropium-Albuterol Nebulize [Duoneb 0.5 mg-3 mg/3 ml Soln] 3 ml INHALATION RT -QID #120 ampul.neb 11/22/16 [Rx] Lidocaine 5% Patch [Lidoderm 5% Patch] 1 patch TOPICAL HS #14 patch 11/22/16 [Rx ] Lisinopril [Zestril] 20 mg PO BID #60 tab 11/22/16 [Rx] Methocarbamol [Robaxin] 750 mg PO TID #60 tab 11/22/16 [Rx] Nicotine 14Mg/24Hr Patch [Habitrol] 1 patch TRANSDERM DAILY #30 patch 11/22/16 [ Rx] amLODIPine [Norvasc] 5 mg PO DAILY #30 tab 11/22/16 [Rx] Follow up Appointment(s)/Referral(s): Nerissa Merchant MD [Primary Care Provider] - 1 Week () Rony Handley DO [Doctor of Osteopathic Medicine] - 1 Week Discharge Disposition: HOME SELF-CARE
== END 2016-11-22 14:32 | disposition home or self-care (01) | DRG 199 ==
LOC: EC 10:48 → 6SEL 13:57
PROVIDERS: ADMIT Internal Medicine Geriatric Medicine; ATTEND Internal Medicine Geriatric Medicine
DX: S27.2XXA Traumatic hemopneumothorax, initial encounter (principal); J18.9 Pneumonia, unspecified organism; J44.0 Chronic obstructive pulmonary disease with (acute) lower respiratory infection; J90 Pleural effusion, not elsewhere classified; J44.1 Chronic obstructive pulmonary disease with (acute) exacerbation; S22.42XA Multiple fractures of ribs, left side, initial encounter for closed fracture; J98.11 Atelectasis; E87.70 Fluid overload, unspecified; I10 Essential (primary) hypertension; R09.02 Hypoxemia; R00.0 Tachycardia, unspecified; R53.1 Weakness; S42.201D Unspecified fracture of upper end of right humerus, subsequent encounter for fracture with routine healing; F17.200 Nicotine dependence, unspecified, uncomplicated; R29.6 Repeated falls; I25.2 Old myocardial infarction; Z80.0 Family history of malignant neoplasm of digestive organs; Z91.041 Radiographic dye allergy status; Z79.82 Long term (current) use of aspirin; Z79.51 Long term (current) use of inhaled steroids; Z79.899 Other long term (current) drug therapy; Z91.81 History of falling; Z71.6 Tobacco abuse counseling; Z80.8 Family history of malignant neoplasm of other organs or systems; Z90.49 Acquired absence of other specified parts of digestive tract; Z90.710 Acquired absence of both cervix and uterus
CPT/HCPCS: 36415; 71020; 71250; 80048; 81003; 83036; 83605; 83735; 84484; 85025; 85027; 85610; 85730; 87040; 93005; 94640; 94760; 96374; 96375; 99285

== ENCOUNTER → 2016-12-05 | Outpatient (CLI) | payer BC ==
--- NOTE | 2016-12-05 15:06 | XR ---
EXAMINATION TYPE: XR chest 2V DATE OF EXAM: 12/05/2016 3:01 PM COMPARISON: Chest x-ray November 22, 2016. HISTORY: Traumatic pneumothorax per order, recent abnormal x-ray after fall injury and rib fractures. TECHNIQUE: Frontal and lateral views of the chest are obtained. FINDINGS: There is persistent small bilateral pleural effusions seen. There is patchy left basilar a telectasis and/or infiltrate improved from prior. No sizable pneumothorax is seen bilaterally on curr ent study. The cardiac silhouette size is within normal limits. Metallic hardware right proximal hum erus is redemonstrated. Cholecystectomy clips are noted. IMPRESSION: Persistent small bilateral pleural effusions and patchy left basilar linear atelectasis and/or infiltrate. No sizable pneumothorax on today's study.
== END | disposition home or self-care (01) ==
LOC: RADXRMAIN 14:41
PROVIDERS: ATTEND Internal Medicine Geriatric Medicine
DX: S27.0XXD Traumatic pneumothorax, subsequent encounter (principal); J90 Pleural effusion, not elsewhere classified; X58.XXXD Exposure to other specified factors, subsequent encounter
CPT/HCPCS: 71020

== ENCOUNTER → 2017-03-26 | Outpatient (CLI) | payer BC ==
--- NOTE | 2017-03-26 17:47 | XR ---
EXAMINATION TYPE: XR chest 2V DATE OF EXAM: 03/26/2017 COMPARISON: December 05, 2016 HISTORY: Shortness of breath TECHNIQUE: Frontal and lateral views of the chest are obtained. FINDINGS: Scattered senescent parenchymal changes noted. Hyperinflation compatible with COPD. No evidence for infiltrate. No evidence for atelectasis. Heart size is stable. Resolution previously noted infiltrates. Mediastinal structures are stable and grossly unremarkable. No evidence for hilar prominence. Degenerative changes dorsal spine. IMPRESSION: 1. No evidence for acute pulmonary disease.
== END | disposition home or self-care (01) ==
LOC: RADXRMAIN 15:57
PROVIDERS: ATTEND Family Medicine
DX: S27.6 Injury of pleura (principal); J44.9 Chronic obstructive pulmonary disease, unspecified; J90 Pleural effusion, not elsewhere classified
CPT/HCPCS: 71020

== ENCOUNTER → 2017-04-09 | Outpatient (CLI) | payer BC ==
--- NOTE | 2017-04-09 09:33 | BD ---
EXAMINATION TYPE: MG DEXA axial skeleton. CLINICAL HISTORY: Postmenopausal osteoporosis per order. Height: 64 Weight: 111 FRAX RISK QUESTIONS: Alcohol (3 or more units per day): no Family History (Parent hip fracture): no Glucocorticoids (More than 3mos): yes, inhaler on & off (Ex: prednisone, prednisolone, methylprednisolone, dexamethasone, and hydrocortisone). History of Fracture in Adulthood: yes, ribs (Oct 2016) & right shoulder(late Sep 2016) Secondary Osteoporosis: 1. Type 1 Diabetes: no 2. Hyperthyroidism: no 3. Menopause before 45: left ovary removed age 38, right removed 39, menopause age 46 4. Malnutrition: no 5. Chronic liver disease: no Rheumatoid Arthritis: no Current Tobacco Use: yes RISK FACTORS HISTORY OF: Other Fractures since Age 51: yes When: 2015 & 2017 Family History of Osteoporosis: no Drink Alcohol: occasionally Active: yes Diet low in dairy products/other sources of calcium: somewhat...several servings during a week Postmenopausal woman: yes Take estrogen and/or progesterone medications: not now How long: about 2 years Lost more than 2 inches in height since high school: no Frequent falls: no Poor Health: no Hyperparathyroidism: no Adrenal Insufficiency: no MEDICATIONS: Prednisone or other steroids: yes How Long: on & off about 3-4 years Thyroid Medications: no Osteoporosis Medications: no Additional Medications: Vitamin D, blood pressure meds Additional History: broke right shoulder September 2017, broke rib Oct 2016 EXAM MEASUREMENTS: Bone mineral densitometry was performed using the [employer] System. Bone mineral density as measured about the Lumbar spine is: ----- L1-L4(G/cm2): 0.883 T Score Values are as follows: ----- L2: -2.5 ----- L3: -2.0 ----- L4: -2.8 ----- L1-L4: -2.5 Bone mineral density BASELINE Bone mineral density about the R hip (g/cm2): 0.580 Bone mineral density about the L hip (g/cm2): 0.592 T Score values are as follows: -----R Neck: -3.3 -----L Neck: -3.2 -----R Total: -3.3 -----L Total: -3.3 Bone mineral density BASELINE IMPRESSION: Osteoporosis (T Score less than -2.5) as noted by T Score values overall in bilateral hips. There is increased fracture risk and therapy is usually indicated based on age.Re-Screen 1-2 years. NOTE: T-SCORE=SD OF THE YOUNG ADULT MEAN.
== END | disposition home or self-care (01) ==
LOC: RADBDWWP 07:51
PROVIDERS: ATTEND Family Medicine
DX: M81.0 Age-related osteoporosis without current pathological fracture (principal); Z78.0 Asymptomatic menopausal state
CPT/HCPCS: 77080

== ENCOUNTER → 2017-08-01 | Outpatient (CLI) | payer BC ==
[2017-08-01 11:29] LABS: Basophils # (A) 0.1 k/uL (0-0.2); Basophils % (A) 1 %; CH 32.9; CHCM 33.2; Eosinophils # (A) 0.2 k/uL (0-0.7); Eosinophils % (A) 2 %; HCT 52.1 % (34.0-46.0); HDW 2.18; HGB 16.4 gm/dL (11.4-16.0); Luc # (Auto) 0.14; Luc % (Auto) 2; Lymphocytes # (A) 1.9 k/uL (1.0-4.8); Lymphocytes % (A) 24 %; MCH 31.2 pg (25.0-35.0); MCHC 31.4 g/dL (31.0-37.0); MCV 99.5 fL (80.0-100.0); Monocytes # (A) 0.7 k/uL (0-1.0); Monocytes % (A) 8 %; Neutrophils # (A) 5.2 k/uL (1.3-7.7); Neutrophils % (A) 64 %; RBC 5.24 m/uL (3.80-5.40); WBC 8.2 k/uL (3.8-10.6); WBC (Perox) 7.87
[2017-08-01 11:57] LABS: ALT 40 U/L (9-52); AST 26 U/L (14-36); Alkaline Phosphatase 128 U/L (38-126); Anion Gap 10 mmol/L; Blood Urea Nitrogen 7 mg/dL (7-17); Calcium 9.7 mg/dL (8.4-10.2); Carbon Dioxide 26 mmol/L (22-30); Chloride 99 mmol/L (98-107); Cholesterol 243 mg/dL (<200); Glucose 103 mg/dL (74-99); HDL Cholesterol 107 mg/dL (40-60); Non-African American GFR(MDRD) >60 (>60 ml/min/1.73 sqM); Potassium 4.7 mmol/L (3.5-5.1); Sodium 135 mmol/L (137-145); Total Bilirubin 0.5 mg/dL (0.2-1.3); Total Protein 7.5 g/dL (6.3-8.2)
[2017-08-01 12:52] LABS: Vitamin B12 >1000 pg/mL
== END | disposition home or self-care (01) ==
LOC: LABWHC1 10:57
PROVIDERS: ATTEND Family Medicine
DX: M80.83 Other osteoporosis with current pathological fracture, forearm (principal); I10 Essential (primary) hypertension; F17.200 Nicotine dependence, unspecified, uncomplicated
CPT/HCPCS: 36415; 80053; 80061; 82306; 82607; 84439; 84443; 85025

== ENCOUNTER → 2018-02-24 | Outpatient (CLI) | payer BC ==
[2018-02-24 07:25] LABS: Basophils # (A) 0.1 k/uL (0-0.2); Basophils % (A) 1 %; Eosinophils # (A) 0.2 k/uL (0-0.7); Eosinophils % (A) 3 %; HCT 44.3 % (34.0-46.0); HGB 15.2 gm/dL (11.4-16.0); Lymphocytes # (A) 1.7 k/uL (1.0-4.8); Lymphocytes % (A) 24 %; MCH 32.1 pg (25.0-35.0); MCHC 34.4 g/dL (31.0-37.0); MCV 93.5 fL (80.0-100.0); Mean Platelet Volume 6.5; Monocytes # (A) 0.5 k/uL (0-1.0); Monocytes % (A) 7 %; Neutrophils # (A) 4.3 k/uL (1.3-7.7); Neutrophils % (A) 62 %; Platelet Count 343 k/uL (150-450); RBC 4.74 m/uL (3.80-5.40); RDW 12.6 % (11.5-15.5); WBC 6.9 k/uL (3.8-10.6)
[2018-02-24 07:37] LABS: ALT 21 U/L (9-52); AST 25 U/L (14-36); Albumin 4.2 g/dL (3.5-5.0); Alkaline Phosphatase 84 U/L (38-126); Anion Gap 10 mmol/L; Blood Urea Nitrogen 7 mg/dL (7-17); Calcium 9.4 mg/dL (8.4-10.2); Carbon Dioxide 28 mmol/L (22-30); Chloride 94 mmol/L (98-107); Glucose 74 mg/dL (74-99); Sodium 132 mmol/L (137-145); Total Bilirubin 0.5 mg/dL (0.2-1.3); Total Protein 6.8 g/dL (6.3-8.2)
[2018-02-24 14:42] LABS: Hemoglobin A1C 5.5 % (4.0-6.0)
== END | disposition home or self-care (01) ==
LOC: LABWHC1 06:29
PROVIDERS: ATTEND Family Medicine
DX: J44.9 Chronic obstructive pulmonary disease, unspecified (principal); I10 Essential (primary) hypertension
CPT/HCPCS: 36415; 80053; 83036; 85025

== ENCOUNTER → 2018-09-11 | Outpatient (CLI) | payer BC ==
[2018-09-11 07:43] LABS: Basophils # (A) 0.1 k/uL (0-0.2); Basophils % (A) 1 %; Eosinophils # (A) 0.3 k/uL (0-0.7); Eosinophils % (A) 4 %; HCT 46.8 % (34.0-46.0); HGB 15.6 gm/dL (11.4-16.0); Lymphocytes # (A) 1.7 k/uL (1.0-4.8); Lymphocytes % (A) 23 %; MCH 32.2 pg (25.0-35.0); MCHC 33.4 g/dL (31.0-37.0); MCV 96.4 fL (80.0-100.0); Monocytes # (A) 0.6 k/uL (0-1.0); Monocytes % (A) 8 %; Neutrophils # (A) 4.6 k/uL (1.3-7.7); Neutrophils % (A) 63 %; Platelet Count 381 k/uL (150-450); RBC 4.85 m/uL (3.80-5.40); RDW 12.5 % (11.5-15.5); WBC 7.3 k/uL (3.8-10.6)
[2018-09-11 12:02] LABS: Albumin 4.5 g/dL (3.80-4.90); Albumin/Globulin Ratio 2.14 (1.20-2.10); Anion Gap 7.8 mmol/L (4.00-12.00); Calcium 9.6 mg/dL (8.7-10.3); Carbon Dioxide 27.2 mmol/L (21.6-31.8); Globulin 2.1 g/dL (2.1-3.7); LDL Cholesterol,Calculated 92.6 mg/dL (0.0-131.0); Potassium 4.9 mmol/L (3.5-5.5); Total Bilirubin 0.5 mg/dL (0.3-1.2); Total Protein 6.6 g/dL (6.2-8.2); VLDL Calculation 21.4 mg/dL (5.00-40.00)
[2018-09-11 16:18] LABS: Hemoglobin A1C 5.4 % (4.0-6.0)
== END ==
LOC: LABWHC1 06:34
PROVIDERS: ATTEND Family Medicine
DX: I10 Essential (primary) hypertension (principal); J44.1 Chronic obstructive pulmonary disease with (acute) exacerbation; R73.01 Impaired fasting glucose
CPT/HCPCS: 36415; 80053; 80061; 82607; 83036; 84443; 85025

== ENCOUNTER 2019-01-03 11:48 | Emergency (ER) | payer BC ==
[2019-01-03 12:04] VITALS: RESP 16; TEMP 98.7
--- NOTE | 2019-01-03 12:42 | XR ---
EXAMINATION TYPE: XR Hip RT and AP Pelvis DATE OF EXAM: 01/03/2019 COMPARISON: NONE HISTORY: Trauma and pain TECHNIQUE: A single AP view of the pelvis is obtained. Two views of the right hip are obtained. FINDINGS: There is no acute fracture/dislocation evident in the pelvis. The hip and sacroiliac join ts appear symmetric and unremarkable. The overlying soft tissue appears unremarkable. Two views of right hip show no acute fracture or dislocation. No focal lytic or sclerotic lesion see n in the proximal right femur. The overlying soft tissue is unremarkable. Probable vascular calcifi cations in the pelvis. Degenerative disc changes in the visualized spine. IMPRESSION: There is no acute fracture or dislocation in the pelvis or right hip. Follow-up as indic ated.
--- NOTE | 2019-01-03 12:45 | ED ---
Fall HPI - General Source: patient, EMS, RN notes reviewed Mode of arrival: EMS Limitations: no limitations <Avinash Winters - Last Filed: 01/03/19 12:56> <Rony Leiva - Last Filed: 01/03/19 15:08> - General Chief Complaint: Fall Stated Complaint: Fall Time Seen by Provider: 01/03/19 11:52 - History of Present Illness Initial Comments: 68-year-old female presents emergency Department with chief complaint of right hip pain after a fall. Patient states that she was able to ambulate after the injury.. Patient states this injury happened last night. Patient states she tripped on a carpet secondary to thick socks. Patient denies any head injury no loss conscious. Patient states she does feel some soreness the right had no prior fractures. (Avinash Winters) - Related Data Home Medications Medication Instructions Recorded Confirmed Aspirin 81 mg PO HS 10/29/16 11/18/16 Fluticasone Propionate [Flovent 2 puff INHALATION RT-DAILY 10/29/16 11/18/16 Hfa 110mcg] Acetaminophen Tab [Tylenol] 650 mg PO Q4H PRN 11/18/16 11/18/16 Cholecalciferol [Vitamin D3] 1,000 unit PO DAILY 11/18/16 11/18/16 Cyanocobalamin [Vitamin B-12] 500 mcg PO DAILY 11/18/16 11/18/16 Previous Rx's Medication Instructions Recorded HYDROcodone/APAP 5-325MG [Lulu 1 each PO Q4-6H PRN #90 tab 11/22/16 5-325] Ipratropium-Albuterol Nebulize 3 ml INHALATION RT-QID #120 11/22/16 [Duoneb 0.5 mg-3 mg/3 ml Soln] ampul.neb Lidocaine 5% Patch [Lidoderm 5% 1 patch TOPICAL HS #14 patch 11/22/16 Patch] Lisinopril [Zestril] 20 mg PO BID #60 tab 11/22/16 Methocarbamol [Robaxin] 750 mg PO TID #60 tab 11/22/16 Nicotine 14Mg/24Hr Patch [Habitrol] 1 patch TRANSDERM DAILY #30 patch 11/22/16 amLODIPine [Norvasc] 5 mg PO DAILY #30 tab 11/22/16 Allergies Allergy/AdvReac Type Severity Reaction Status Date / Time Iodinated Contrast- Oral and Allergy Intermediate Rash/Hives Verified 01/03/19 11:57 IV Dye [Iodinated Contrast Media - Oral and] Review of Systems ROS Other: All systems not noted in ROS Statement are negative. <Avinash Winters - Last Filed: 01/03/19 12:56> ROS Other: All systems not noted in ROS Statement are negative. <Rony Leiva - Last Filed: 01/03/19 15:08> ROS Statement: Those systems with pertinent positive or pertinent negative responses have been documented in the HPI. Past Medical History Past Medical History: COPD, Hypertension, Myocardial Infarction ([place]) Additional Past Medical History / Comment(s): TOLD SILENT NC IN PAST. FX RT PROXIMAL HUMERUS CURRENTLY, IN SLING. Last Myocardial Infarction Date:: UNKNOWN History of Any Multi-Drug Resistant Organisms: None Reported Past Surgical History: Appendectomy, Cholecystectomy, Hysterectomy, Orthopedic Surgery Additional Past Surgical History / Comment(s): EXC OVARIAN CYST. Past Anesthesia/Blood Transfusion Reactions: No Reported Reaction Past Psychological History: No Psychological Hx Reported Smoking Status: Current every day smoker Past Alcohol Use History: Occasional Past Drug Use History: None Reported - Past Family History Mother Family Medical History: Cancer Additional Family Medical History / Comment(s): colon ca-passed from Father Family Medical History: Cancer Additional Family Medical History / Comment(s): skin ca <Avinash Winters - Last Filed: 01/03/19 12:56> General Exam Limitations: no limitations General appearance: alert, in no apparent distress Head exam: Present: atraumatic, normocephalic, normal inspection Respiratory exam: Present: normal lung sounds bilaterally. Absent: respiratory distress, wheezes, rales, rhonchi, stridor Cardiovascular Exam: Present: regular rate, normal rhythm, normal heart sounds. Absent: systolic murmur, diastolic murmur, rubs, gallop, clicks Extremities exam: Present: other (Mild tenderness the right hip, neurovascular intact full range of motion) Neurological exam: Present: alert, oriented X3, CN II-XII intact, reflexes normal. Absent: motor sensory deficit Skin exam: Present: warm, dry, intact, normal color. Absent: rash <Avinash Winters - Last Filed: 01/03/19 12:56> Course <Rony Leiva - Last Filed: 01/03/19 15:08> Vital Signs 01/03/19 01/03/19 11:57 13:23 Temperature 98.7 F Pulse Rate 108 H 96 Respiratory 16 16 Rate Blood Pressure 156/91 147/78 O2 Sat by Pulse 92 L 95 Oximetry - Reevaluation(s) Reevaluation #1: 01/03/19 15:08 PA supervision: I personally evaluate this case patient did have a complaint of right hip pain after a fall. Evaluation revealed the patient had pain on palpation. No definite evidence of shortening or rotation. Patient had negative findings on imaging. I do agree with the assessment and plan. (Rony Leiva) Medical Decision Making <Avinash Winters - Last Filed: 01/03/19 12:56> - Medical Decision Making 68-year-old female presented emergency from for fall, rib pain patient had x- rays which were negative for acute fracture patient was able to ambulate emergency Department with mild soreness but was able to ambulate no assistive d evice. Patient will be discharged. Return parameters were discussed. (Avinash Winters) Disposition Is patient prescribed a controlled substance at d/c from ED?: No Time of Disposition: 13:00 <Avinash Winters - Last Filed: 01/03/19 12:56> <Rony Leiva - Last Filed: 01/03/19 15:08> Clinical Impression: Fall, Contusion of right hip Disposition: HOME SELF-CARE Condition: Stable Instructions (If sedation given, give patient instructions): Hip Contusion (ED) Additional Instructions: Please return to the Emergency Department if symptoms worsen or any other concerns. Referrals: Nerissa Merchant MD [Primary Care Provider] - 1-2 days
[2019-01-03] MEDS ORDERED: ACET/COD 300 MG/30 MG STARTER PACK 6 TAB BTL PO STA (13:00)
[2019-01-03 13:24] VITALS: BP 147/78; PULSE 96
== END 2019-01-03 13:12 | disposition home or self-care (01) ==
LOC: EC 11:48
DX: S70.01XA Contusion of right hip, initial encounter (principal); J44.9 Chronic obstructive pulmonary disease, unspecified; I25.2 Old myocardial infarction; F17.200 Nicotine dependence, unspecified, uncomplicated; Z91.041 Radiographic dye allergy status; Z79.51 Long term (current) use of inhaled steroids; Z79.82 Long term (current) use of aspirin; Z79.899 Other long term (current) drug therapy; W01.0XXA Fall on same level from slipping, tripping and stumbling without subsequent striking against object, initial encounter
CPT/HCPCS: 73502; 99283

== ENCOUNTER → 2019-08-24 | Outpatient (CLI) | payer BC ==
--- NOTE | 2019-08-24 15:02 | XR ---
EXAMINATION TYPE: XR chest 2V DATE OF EXAM: 08/24/2019 COMPARISON: 03/26/2017 HISTORY: Cough and COPD. TECHNIQUE: Frontal and lateral views of the chest are obtained. FINDINGS: Chronic right basal atelectasis or scarring tenting right hemidiaphragm. There is no focal air space opacity, pleural effusion, or pneumothorax seen. The cardiac silhouette size is within no rmal limits. Diffuse osseous demineralization is present. Minimal degenerative changes of the spine. The osseous structures are intact. Old healed left rib fracture. Postsurgical change of the right hu merus is partially visualized. Cholecystectomy clips are present. IMPRESSION: Chronic changes with no acute cardiopulmonary process.
== END | disposition home or self-care (01) ==
LOC: RADXRMAIN 14:36
PROVIDERS: ATTEND Family Medicine
DX: J44.9 Chronic obstructive pulmonary disease, unspecified (principal)
CPT/HCPCS: 71046

== ENCOUNTER → 2021-11-22 | Outpatient (CLI) | payer BC ==
--- NOTE | 2021-11-28 10:20 | P.ARTDOP ---
Arterial Doppler LOWER EXTREMITY ARTERIAL DOPPLER: DATE OF SERVICE: 11/22/2021 Reason for study: Right calf claudication. Doppler waveforms: Multiphasic at the right femoral. Atypical below the femoral on the right and throughout on the left.. Pulse volume recording: []. Pressure gradients: Above the low thigh bilaterally and across the knee on the left.. Ankle-brachial indices: 0.6 bilaterally. Toe brachial indices: 0.3 on the right, 0.23 on the left Impression: Moderate right femoral popliteal disease. Moderate left iliofemoral and femoral popliteal disease. More of a multilevel process on the left. Recommend surgical specialty consultation..
== END | disposition home or self-care (01) ==
LOC: RADUSWWP 12:52
PROVIDERS: ATTEND Family Medicine
DX: I73.9 Peripheral vascular disease, unspecified (principal)
CPT/HCPCS: 93923

== ENCOUNTER 2024-06-13 11:07 | Emergency (ER) | payer MEDICARE ==
[2024-06-13] MEDS ORDERED: OXYMETAZOLINE 0.05% NASL SPRAY 1 SPRAY BOTTLE ONE (11:53)
== END 2024-06-13 13:00 | disposition home or self-care (01) ==
LOC: EC 11:07 → EDSTATUS 15:32
DX: R04.0 Epistaxis (principal)
CPT/HCPCS: 99283